=== PATIENT | female | born 1960 | race African-American/Black ===

== ENCOUNTER 2017-01-23 20:35 | Inpatient (IN) ==
--- NOTE | 2017-01-23 15:36 | PROVIDER DOCUMENTATION ---
HPI-General Adult - General Chief Complaint: Clotted Vas Access Stated Complaint: SENT FROM DIALYSIS FOR EVAL Time Seen by Provider: 01/23/17 15:22 Source: patient Allergies/Adverse Reactions: Patient Allergies Allergy/AdvReac Type Severity Reaction Status Date / Time No Known Allergies Allergy Verified 12/01/16 16:15 Home Medications: Home Medication List Medication Instructions Recorded Confirmed Last Taken Type Sodium Bicarbonate 650 mg PO BID #60 tablet 07/07/15 01/23/17 01/22/17 20:00 Rx Atorvastatin Calcium [Lipitor] 40 mg PO QHS 08/16/15 01/23/17 01/22/17 20:00 History Amlodipine [Norvasc] 10 mg PO DAILY #30 tablet 04/07/16 01/23/17 01/23/17 Rx Isosorbide Mononitrate [Isosorbide 30 mg PO DAILY #30 tab.er.24h 04/07/1601/23/17 07:00 Rx Mononitrate ER] Metoprolol Succinate E.r. [Toprol 25 mg PO DAILY #30 tablet 04/07/16 01/23/17 08:00 Rx Xl] Sertraline [Zoloft] 50 mg PO DAILY #30 tablet 04/07/16 01/23/17 01/23/17 07:00 Rx Docusate Sodium 100 mg PO DAILY 06/19/16 01/23/17 06/23/16 07:30 History Hydralazine [Apresoline] 50 mg PO TID 06/19/16 01/23/17 01/23/17 History Trazodone [Desyrel] 50 mg PO QHS 06/19/16 01/23/17 01/22/17 20:00 History Gabapentin [Neurontin] 300 mg PO TID 12/02/16 01/23/17 01/23/17 History Tramadol [Ultram] 50 mg PO BID PRN 12/02/16 01/23/17 01/22/17 20:00 History Insulin Detemir [Levemir Flextouch] 28 unit SQ QHS 01/23/17 01/23/17 01/22/17 20 :00 History - History of Present Illness -Gen Adult Nature of Presenting Problems: 57 year old AAF presents from dialysis. pt reports she rodo to dialysis and they were unable to access her fistula for dialysis and sent her to the ED for evaluation. pt denies any complaints at this time. full dialysis was performed on Thursday. Location of Pain/Injury: reports: upper extremity Review of Systems - Adult - REVIEW OF SYSTEMS - ADULT Constitutional: reports: no symptoms reported. denies: chills, fever, fatique Eyes: reports: no symptoms reported. denies: discharge, blurred vision, double vision, redness Ears, Nose, Mouth & Throat: reports: no symptoms reported. denies: ear discharge, ear pain, nose pain, loose teeth, throat pain, throat swelling Cardiovascular: reports: no symptoms reported. denies: chest pain, palpitations , syncope Respiratory: reports: no symptoms reported. denies: chronic cough, cough, shortness of breath, wheezing Gastrointestinal: reports: no symptoms reported. denies: abdominal pain, diarrhea, nausea, vomiting Genitourinary: reports: no symptoms reported. denies: dysuria, hematuria, urgency Musculoskeletal: reports: see HPI, other (left AV fistula). denies: bone pain, joint pain, joint swelling, neck pain Integumentary: reports: no symptoms reported. denies: hives, itching, skin sores/ulcer Neurological: reports: no symptoms reported. denies: ataxia, syncope Psychiatric: reports: no symptoms reported Endocrine: reports: no symptoms reported Hematologic/Lymphatic: reports: no symptoms reported Allergic/Immunologic: reports: no symptoms reported All Other Systems: Reviewed and Negative Past History - Adult - PAST MEDICAL HISTORY-ADULT Review of Records: reports: Old Records Reviewed, Nursing Assessment Review, Medications Reviewed, Social history reviewed & non-contributory. Major Childhood Illnesses: reports: denies history Cardiovascular: reports: arrhythmia, CAD, HTN, ID, PVD Respiratory: reports: denies history Gastrointestinal: reports: denies history Obstetrical/Gynecological: reports: denies history Genitourinary: reports: dialysis, kidney disease Musculoskeletal: reports: denies history Neurological: reports: CVA Psychiatric: reports: denies history Endocrine/Immune: reports: Diabetes Diabetes controlled by:: Insulin Dependent Other Conditions: reports: denies history - PRIOR SURGERIES/PROCEDURES Surgical/Procedure History: reports: , orthopedic (extremity) (left BKA ), other (dental) - PRIOR HOSPITALIZATIONS Prior Hospitalizations: reports: none - IMMUNIZATION STATUS Childhood Immunizations: See Nurse Assessment Flu Vaccine: See Nurse Assessment - FAMILY HISTORY Family History: reviewed, not pertinent - SOCIAL HISTORY Smoking: cigarettes Provider spent 3-5 mins advising pt. on dangers of tobacco.: Discussed manners to quit use, and f/u contacts for add'l counseling. Substance Use: none/never Alcohol Use Frequency: never Physical Exam-General - PHYSICAL EXAM-ADULT Initial Vital Signs Reviewed: Yes - CONSTITUTIONAL General Appearance: appears well, alert, no apparent distress. negative: mild distress, moderate distress, severe distress - EYES Eyes: pink conjunctivae. negative: conjuctival exudate, pale conjunctivae, sclera injected, scleral icterus, subconjunctival hemorrhage - HEAD, EARS, NOSE, MOUTH & THROAT HENMT: normocephalic/atraumatic, moist mucous membranes, normal ENT inspection - NECK Neck: non-tender, full range of motion, supple, normal inspection. negative: C- spine tenderness, limited range of motion, tender lateral, tender midline - RESPIRATORY Respiratory: chest non-tender, lungs clear, normal breath sounds, no pleuratic chest pain, no respiratory distress, no accessory muscle use. negative: respiratory distress, decreased breath sounds, accessory muscle use, crackles, rales, rhonchi, stridor, wheezing - CARDIOVASCULAR Cardiovascular: normal peripheral pulses, regular rate, rhythm, no edema, no gallop, no JVD, no murmur - GASTROINTESTINAL (ABDOMEN) Abdominal Exam: normal bowel sounds, non tender, soft, no organomegaly, no pulsatile mass. negative: distended, guarding, rigid, tenderness - LYMPHATIC Lymphatic: no adenopathy - MUSCULOSKELETAL Back Exam: normal inspection, no CVA tenderness, no vertebral tenderness. negative: CVA tenderness, decreased range of motion, swelling, vertebral tenderness Extremity: normal range of motion, non-tender, other (left upper arm with AV fistula). negative: normal gait (wheelchair bound), normal inspection ( bilateral above the knee amputations) Peripheral Pulses: radial (R): 3+, radial (L): 3+ - SKIN Integumentary: normal color, normal turgor, warm/dry. negative: pallor, petechiae, purpura, rash - NEUROLOGIC Neurologic: grossly normal, no motor/sensory deficits - PSYCHIATRIC Psych/Mental Status: normal mood/affect, normal thought content, normal thought process, oriented x 3 Progress - PLAN OF CARE/RESULTS Progress/Plan/Lab Results: Vital Signs - 8 hr 01/23/17 14:26 Temperature 97.8 F Pulse Rate 67 Respiratory Rate 14 Blood Pressure 159/57 O2 Sat by Pulse Oximetry [address] Morales, need for consult with nephrology. - CONSULTS/PCP/HOSPITALIST Notification #1 *Consult/PCP/Hospitalist*: Dr. Perry Time Discussed: 15:35 Consult Disposition: other (pt was suppossed to go to admissions, not the ED.) Departure - Departure Time of Disposition Decision: 15:40 DIAGNOSIS: Vascular abnormality, Renal failure Disposition: OTHER 70 Certified Medical Emergency: Emergent Condition: Stable Additional Freetext Instructions: Please go to admissions right now, you were supposed to go there, not to the ED. ED Follow Up Instructions: You have been treated by a care provider in the Emergency Department. These instructions are being provided to you so you can have an understanding of how to care for yourself upon discharge. Upon discharge from the Emergency Department, you are responsible for making arrangements for follow-up care by a physician of your choice. Take all prescribed medications as directed. Return to the Emergency Department immediately for any new or worsening symptoms. You may call the Physician Referral phone number at [phone] to obtain a list of Physicians who are taking new patients. Referrals and Follow-Ups: None,PCP [Primary Care Provider] - Reggie Perry MD [STAFF PHYSICIAN] - Attestation - Physician/ [place] Attestation Patient care was provided by Advanced Practice Provider:: Yes Advanced Practice Provider:: Ruba Basurto Advanced Practice Provider documentation review:: The Mid-level provider documentation, treatment plan and medical decision making was reviewed by the physician who agrees with all treatment and medical decision making by the [facility].
--- NOTE | 2017-01-23 18:25 | CONSULTATION ---
DATE OF CONSULTATION: 01/23/2017 HISTORY OF PRESENT ILLNESS: This is a 57-year-old female with end-stage renal disease on dialysis for a long period of time. She has left upper arm AV graft created by Dr. Lujan in June. It has functioned well until dialysis today and noted to be thrombosed. She is admitted now for temporary access and plans for declot. No pain. Otherwise in her usual state of health. No obvious signs of volume overload. REVIEW OF SYSTEMS: Ten point negative except for what is mentioned in her HPI. PAST MEDICAL HISTORY: 1. End-stage renal disease. 2. Heart failure. 3. Diabetes. 4. Coronary disease. 5. Hypertension. 6. Medical noncompliance. 7. Peripheral vascular disease. 8. Neuropathy. 9. Dyslipidemia. 10. CVA x2. SURGICAL HISTORY: Left arm upper arm AV graft, bilateral above knee amputations. SOCIAL HISTORY: Every day smoker. Denies alcohol or drugs. She is disabled. She lives in a rehab facility. FAMILY HISTORY: Diabetes, heart disease, hypertension. PHYSICAL EXAMINATION: Vital Signs: Temperature is 98.6 degrees, pulse 70, blood pressure 155/62, oxygen saturation 100% on room air. General: She is alert, in no acute distress. HEENT: No scleral icterus. There are no cervical scars. Cardiovascular: Normal rate, regular rhythm. Pulmonary: No increased work of breathing. Abdomen: Soft, nontender, nondistended. Bilateral below-knee amputations, a left upper arm AV graft. No pulse or thrill. Her left wrist and hand are warm. There is a palpable radial pulse. LABS: Pending. ASSESSMENT: This is a 57-year-old lady with end-stage renal disease and a thrombosed left upper arm AV graft. Risks, benefits and alternatives discussed including arterial injury, bleeding and infection. She consents to temporary Vas-Cath placement. We will do this evening and plan to place this in her groin. I have discussed with Dr. Lujan. He will plan to declot her graft on Thursday. Dr. Perry plans dialysis tomorrow. cc: MD Reggie Valenzuela MD MTDD
[~2017-01-23 20:35] MED LIST: ULTRAM PO PRN
--- NOTE | 2017-01-23 20:38 | OPERATIVE NOTE ---
PROCEDURE DATE: 01/23/2017 PREOPERATIVE DIAGNOSES: 1. Left arteriovenous graft thrombosis. 2. End-stage renal disease. POSTOPERATIVE DIAGNOSES: 1. Left arteriovenous graft thrombosis. 2. End-stage renal disease. PROCEDURE PERFORMED: Ultrasound-guided right femoral vein dialysis catheter placement. COMPLICATIONS: None. ESTIMATED BLOOD LOSS: 5 mL. SPECIMENS: None. ANESTHESIA: Local. OPERATIVE INDICATIONS: A 57-year-old female with end-stage renal disease and a left upper arm AV graft that was not functional today at dialysis. It was felt to be clotted. Temporary access is indicated to facilitate dialysis pending formal thrombectomy. OPERATIVE FINDINGS: Ultrasound of the right groin showed normal arterial anatomy. There was a large femoral vein that was compressible with no evidence intraluminal thrombus. OPERATIVE NOTE: The risks, benefits, and alternatives were discussed. The patient consented to the procedure. She was seen in the procedural area, and the procedure to be performed was confirmed. The surgical site was confirmed. A time out was performed between nursing and surgical team. The right groin was prepped with chlorhexidine solution and draped in the usual fashion. Ultrasound examination was performed of the right groin with the above findings, adequate vein for placement of the line. Local anesthetic was infiltrated at the level of the vein. Under direct ultrasound guidance, a pink introducer needle was used to access the right femoral vein. Dark nonpulsatile venous blood was noted on return. The wire passed easily into the vena cava, and we confirmed with ultrasound that this coursed directly into the femoral vein, not traversing the artery. I made a skin conchita with an 11 blade scalpel, dilated the tract serially using Seldinger technique, and a preflushed triple-lumen dialysis catheter was advanced without resistance. All ports withdrew blood and flushed easily. It was secured with nylon suture, and a sterile dressing was applied. Sterile caps were also applied to the line. She tolerated the procedure very well. There were no identifying complications. She was transferred back to her room in good condition. cc: MD Reggie Valenzuela MD
[2017-01-23] MEDS: LIPITOR PO SCH (23:05)
[2017-01-23] MEDS: SODIUM BICARBONATE PO SCH (23:05)
[2017-01-23] MEDS: LEVEMIR INJ SCH (23:06)
[2017-01-23] MEDS: DESYREL PO SCH (23:06)
[2017-01-23] MEDS: LOMOTIL PO PRN (23:06)
[2017-01-24] MEDS ORDERED: TIGHT: 0.2 ML/HR MISC PRN (08:31)
[2017-01-24] MEDS ORDERED: HEPARIN IV PRN (08:31)
[2017-01-24] MEDS ORDERED: NS 2,000 ML MISC PRN (08:31)
[2017-01-24] MEDS ORDERED: NS 2,000 ML ONE (09:46)
[2017-01-24] MEDS ORDERED: HEPARIN ONE (09:46)
--- NOTE | 2017-01-24 12:57 | PROGRESS NOTE ---
DATE: 01/24/2017 This is a dialysis note. She is midway through her treatment today. No shortness of breath. No cramping. No nausea and no hypotension. No adjustments are made. We will target 2-3 L of ultrafiltration. Two potassium bath. cc: Reggie Perry MD
--- NOTE | 2017-01-24 15:17 | CONSULTATION ---
DATE OF CONSULTATION: 01/24/2017 CONSULTING PHYSICIAN: Dr. Reggie Perry. REASON FOR CONSULTATION: Medical management. HISTORY OF PRESENT ILLNESS: Ms. Martinez is a 57-year-old female well known to our service. She has a history of ESRD on hemodialysis, along with multiple other comorbidities. She was admitted by Dr. Perry for AV fistula clot, ultimately requiring a hemodialysis catheter placed by Dr. Garrido yesterday evening. Currently, she is in hemodialysis, resting comfortably. She has been complaining of right-sided chest pain for the past 4 days. She rates it as sharp in nature and intermittent, and there are no radiating qualities, no shortness of breath, no diaphoresis. She denies any cough or congestion. No recent fevers or chills. No abdominal pain, nausea, or vomiting. We have ordered stat laboratories and diagnostics. PAST MEDICAL HISTORY: 1. Chronic diastolic congestive heart failure. 2. History of cerebrovascular disease. 3. ESRD, on hemodialysis Thursday, Thursday, Thursday. 4. CAD. 5. Hypertension. 6. Medical noncompliance. 7. Hyperlipidemia. 8. Diabetic neuropathy. 9. CVA. 10. Nicotine dependence. 11. Poorly controlled insulin-dependent diabetes mellitus. SURGICAL HISTORY: Bilateral AKAs and left AV graft. She had a hemodialysis catheter placed yesterday. SOCIAL HISTORY: Patient smokes about 4-6 cigarettes a day. She denies alcohol or drug use. She is disabled. FAMILY HISTORY: Significant for hypertension, heart disease, and diabetes. REVIEW OF SYSTEMS: Fourteen-point review of systems obtained and found to be negative with the exception of the HPI. ALLERGIES: No known drug allergies. HOME MEDICATIONS: Norvasc 10 mg daily; Lipitor 40 mg at bedtime; Colace 100 mg daily; Neurontin 300 mg p.o. t.i.d.; Apresoline 50 mg t.i.d.; Levemir FlexTouch 28 units subcutaneously at bedtime; isosorbide mononitrate ER 30 mg daily; metoprolol-XL 25 mg daily; Zoloft 50 mg daily; sodium bicarbonate 650 mg p.o. b.i.d.; Ultram 50 mg b.i.d.; Desyrel 50 mg at bedtime. PHYSICAL EXAMINATION: Vital Signs: Blood pressure is 182/59, heart rate 70, respiratory rate 16, O2 saturation 98% on room air. Temperature is 97.9 degrees. General: This is a chronically ill- appearing, 57-year-old female, lying on the hospital bed in no acute distress. Neurologic: The patient is awake and alert. She is nonfocal. She follows commands. HEENT: Head is atraumatic, normocephalic. Pupils equal, round, reactive to light. Oral mucosa moist. Trachea midline. Chest: Clear to auscultation bilaterally. Cardiovascular: Regular rate and rhythm. S1 and S2 noted. Gastrointestinal: Soft, nondistended, nontender. Bowel sounds positive. Extremities: Bilateral AKAs noted. Femoral pulses intact. Hemodialysis catheter intact. DIAGNOSTIC DATA: Pending. ASSESSMENT AND PLAN: 1. Chest pain: Very atypical in nature, but, given her history, we will work her up for cardiac causes including ischemic heart disease. We are going to check a chest x-ray and trend her cardiac enzymes. She is on what appears to be very adequate medications for her chronic coronary disease. We will make sure she is on an aspirin as well. 2. End-stage renal disease, on hemodialysis: This is going to be managed per Dr. Perry. We have ordered laboratories. 3. Diabetes mellitus: Chronic and stable. Will continue her home medications and add pattern sugars and sliding scale insulin. 4. Hypertension: Chronic and stable, continue home medications. 5. Diastolic heart failure: Chronic and stable, continue home medications. 6. Nicotine dependence: Patient has been highly advised to quit smoking. We will write a nicotine patch and continue daily cessation education. 7. Hyperlipidemia: Chronic and stable, continue home medications. 8. Medical noncompliance: Patient has been advised to continue medication regimen as outlined by her primary care physician and Dr. Perry. We will continue daily education. 9. Deep vein thrombosis prophylaxis will be provided with daily heparin. Further recommendations to follow. We would like to thank you for this consultation. We will continue to follow along with you. Dictated by CORINA Muñoz for Miguelangel San MD cc: CORINA Muñoz MD Reginald D. Gladish, MD
--- NOTE | 2017-01-24 15:18 | HISTORY AND PHYSICAL ---
DATE OF ADMISSION: 01/24/2017 REASON FOR ADMISSION: Assistance with management. HISTORY OF PRESENT ILLNESS: Ms. Martinez is a 57-year-old woman, with severe diabetes and peripheral vascular disease, and end-stage kidney disease. She receives dialysis routinely Thursday, Thursday and Thursday at our local clinic. She presented to dialysis on the with a thrombosed left upper arm AV graft. Because of the lateness of the hour on Thursday we were not able to arrange for her to get an outpatient thrombectomy performed. Transport to [place] was also a problem. As such, she was directed to the hospital for access placement. Dr. Garrido and Dr. hernandes have consulted together and they have plan to place a femoral vein catheter on the evening of the , and then Dr. Hernandes will perform thrombectomy on Thursday the . Currently she has no chest pain or palpitation or shortness of breath. No nausea or vomiting. She does describe loose bowel movements that has been going on for about a week. No chills, fevers or sweats. No pain in the arm. She was not aware that her graft had thrombosed. PAST MEDICAL HISTORY: 1. Diabetes. 2. Peripheral vascular disease. 3. Hyperlipidemia. 4. Hypertension. 5. Peripheral neuropathy. HOME MEDICATIONS: The home medications include sodium bicarbonate, atorvastatin, metoprolol, isosorbide, sertraline, amlodipine, trazodone, docusate, hydralazine, tramadol, gabapentin, and insulin. ALLERGIES: None. SOCIAL HISTORY: She lives in [place], but has very limited social support. They have no car to drive to [place]. FAMILY HISTORY: Positive for diabetes and hypertension. REVIEW OF SYSTEMS: Otherwise negative. PHYSICAL EXAMINATION: Vital Signs: Blood pressure 182/59, heart rate 70, respirations 16, afebrile. General: She is a chronically ill woman, in no acute distress. She has had obvious weight gain in that her facial muscles have filled out and her arms and shoulders have filled out. HEENT: Pupils are equal. Conjunctivae are pink. Oropharynx is moist. Dentition is normal. Neck: Supple. Trachea is midline. No jugular venous distention. Heart: Regular, without gallops or murmurs. Lungs: The lungs have equal breath sounds. No crackles. Abdomen: Soft and nontender. Bowel sounds are present. Extremities: The extremities have trace edema. No clubbing or cyanosis. She has no ulcers. LABORATORY DATA: None. IMPRESSION: 1. Thrombosed AV graft. Plan as above. We will hold her in the hospital over the weekend because of difficulty with transportation. 2. End-stage kidney disease. She is undergoing dialysis today. In fact, she is currently receiving treatment. 3. Hypertension. Continue home medications. Her blood pressure is ranging between 148 and 182 systolic. We will assess post dialysis before making the adjustment. 4. History of metabolic acidosis. She is still receiving p.o. bicarbonate. We will recheck her labs. 5. History of anemia. We will recheck. She may require dose of erythropoietin. cc: Reggie Perry MD
[2017-01-24] MEDS: APRESOLINE PO SCH ×3 (15:42→22:05)
[2017-01-24] MEDS: COLACE PO SCH (15:43)
[2017-01-24] MEDS: ZOLOFT PO SCH (15:44)
[2017-01-24] MEDS: NORVASC PO SCH (15:44)
[2017-01-24] MEDS: NEURONTIN PO SCH ×3 (15:45→22:03)
[2017-01-24] MEDS: TOPROL XL PO SCH (15:45)
[2017-01-24] MEDS: IMDUR PO SCH (15:46)
[2017-01-24] MEDS: SODIUM BICARBONATE PO SCH ×2 (15:46→22:03)
--- NOTE | 2017-01-24 15:52 | Diag Imaging Result Document ---
PROCEDURE NAME: CHEST-PORTABLE - 01/24/2017 PORTABLE CHEST X-RAY: COMPARISON: 12/02/2016. FINDINGS: The lungs are normally expanded and clear. Heart size and mediastinal contours are normal. No pneumothorax or pleural effusion. IMPRESSION: Negative exam.
[2017-01-24] MEDS: NICODERM PATCH TD SCH (15:53)
[2017-01-24] MEDS: ASPIRIN PO SCH (15:53)
[2017-01-24] MEDS: HUMALOG SUBQ SCH ×2 (16:09→22:04)
[2017-01-24] MEDS: LOMOTIL PO PRN ×2 (16:20→22:04)
[2017-01-24] MEDS ORDERED: INSULIN PEN NEEDLES ONE (17:19)
[2017-01-24 21:49] LABS: HEMATOCRIT 37.8 % (37.0-47.0); HEMOGLOBIN 12.5 g/dL (12.0-16.0); MCH 33.3 PG (27-31); MCHC 33.1 g/dL (33-37); MCV 100.8 FL (81-99); MPV 12.6 FL (7.4-10.4); RBC 3.75 XMIL (4.2-5.4)
[2017-01-24] MEDS: LIPITOR PO SCH (22:03)
[2017-01-24] MEDS: HEPARIN SUBQ SCH (22:03)
[2017-01-24] MEDS: DESYREL PO SCH (22:03)
[2017-01-24] MEDS: LEVEMIR INJ SCH (22:04)
[2017-01-24 22:27] LABS: ALBUMIN 4.2 g/dL (3.5-5.0); CALCIUM 9.6 mg/dL (8.8-10.2); TOTAL BILIRUBIN 0.25 mg/dL (0.20-1.00); TOTAL PROTEIN 7.8 g/dL (6.3-8.3)
[2017-01-24 22:41] LABS: CK INDEX 1.1 (0.0-2.5); CK-MB 2.55 ng/mL (0.0-5.0)
[2017-01-25 06:44] LABS: HEMATOCRIT 37.1 % (37.0-47.0); MCH 33.4 PG (27-31); MCHC 32.3 g/dL (33-37); MCV 103.3 FL (81-99); MPV 13.1 FL (7.4-10.4); RBC 3.59 XMIL (4.2-5.4)
[2017-01-25 07:09] LABS: ALBUMIN 3.9 g/dL (3.5-5.0); CALCIUM 9.4 mg/dL (8.8-10.2); POTASSIUM 4.2 mmol/L (3.5-5.1)
[2017-01-25] MEDS: HUMALOG SUBQ SCH ×4 (07:21→21:57)
[2017-01-25 07:44] LABS: CK INDEX 0.7 (0.0-2.5); CK-MB 2.2 ng/mL (0.0-5.0)
[2017-01-25 07:54] LABS: INR 1.08; PROTIME 11.4 Seconds (9.2-11.7); PTT 24.7 Seconds (22.0-36.0)
[2017-01-25] MEDS: ZOLOFT PO SCH (08:55)
[2017-01-25] MEDS: IMDUR PO SCH (08:55)
[2017-01-25] MEDS: SODIUM BICARBONATE PO SCH ×2 (08:55→21:08)
[2017-01-25] MEDS: NEURONTIN PO SCH ×3 (08:55→17:28)
[2017-01-25] MEDS: TOPROL XL PO SCH (08:56)
[2017-01-25] MEDS: HEPARIN SUBQ SCH ×2 (08:56→21:09)
[2017-01-25] MEDS: APRESOLINE PO SCH ×3 (08:56→17:28)
[2017-01-25] MEDS: NORVASC PO SCH (08:57)
[2017-01-25] MEDS: COLACE PO SCH (08:57)
[2017-01-25] MEDS: ASPIRIN PO SCH (08:57)
[2017-01-25] MEDS: NICODERM PATCH TD SCH (08:57)
[2017-01-25] MEDS: LOMOTIL PO PRN ×3 (09:58→21:08)
--- NOTE | 2017-01-25 15:41 | PROGRESS NOTE ---
DATE: 01/25/2017 SUBJECTIVE: No issues. Dialysis went well. Her vas cath functioned well. No symptoms of her left upper extremity. No pain. OBJECTIVE: Vital signs: No fevers. No tachycardia. Blood pressure normal. Left upper extremity: Well perfused. Her IV site is without hematoma. LABORATORY: I reviewed her labs. Electrolytes look okay. Creatinine stable at 3.6. ASSESSMENT AND PLAN: This is a 57-year-old female with end-stage renal disease and nonfunctional left upper arm graft with temporary access in her groin. Discussed with Dr. Lujan. He plans to thrombectomize the graft Thursday. We will make her nothing per oral at midnight in anticipation of this. I have discussed with Dr. Perry as well. cc: MD Reggie Valenzuela MD
--- NOTE | 2017-01-25 18:07 | PROGRESS NOTE ---
DATE: 01/25/2017 SUBJECTIVE: This patient states that she is feeling fine. She is not complaining of any issues at this moment. No acute events overnight. OBJECTIVE: Vital Signs: Temperature 98.4 degrees, pulse 70, respiratory rate 16, blood pressure 154/66, oxygen saturation 100% on room air. HEENT: Head normocephalic. No trauma. PERRLA. Neck: Supple. No JVD. No masses. Central trachea. Chest: Clear to auscultation. No wheezing. No rales. Abdomen: Soft, nontender, nondistended. No hepatosplenomegaly. Cardiovascular: RRR. No murmurs. Extremities: She has bilateral lower extremity amputation. Neurological: The patient is alert and oriented x3. She moves all 4 extremities. LABORATORY: WBC 4.2, hemoglobin 12, hematocrit 37.1, platelets 98,000. Sodium 143, potassium 4.2, chloride 102, bicarbonate 23, BUN 73, creatinine 3.6, glucose 116, calcium 9.4, glucose 119. Troponin 0.03 x2. ASSESSMENT AND PLAN: 1. End-stage renal disease on hemodialysis. This patient has a nonfunctional left upper arm graft with poor IV access in her groin. The plan is to thrombectomized the graft tomorrow. This patient will be NPO after midnight. The aspirin has been held. We will continue to monitor. 2. Chest pain. This patient is not complaining about chest pain at this moment. 3. Type 2 diabetes. This is chronic and stable. Continue with sliding scale and pattern of blood sugar. 4. Hypertension, chronic and stable. Continue with home medication. 5. Diastolic heart failure. Continue with the same management. 6. Nicotine dependence. This patient has been highly advised against smoking cigarettes. We will continue with nicotine patch and daily cessation education. 7. Hyperlipidemia. Continue home medication. 8. Medical noncompliance. This patient has been advised to continue medication regimen as prescribed. We will continue with daily education. 9. Deep vein thrombosis prophylaxis will be provided by daily heparin and will be held in the morning for the procedure. cc: MD Reggie Lazo MD
[2017-01-25] MEDS: LIPITOR PO SCH (21:08)
[2017-01-25] MEDS: LEVEMIR INJ SCH (21:08)
[2017-01-25] MEDS: DESYREL PO SCH (21:08)
--- NOTE | 2017-01-26 05:54 | EKG Report ---
Test Performed on : 01/24/2017 3:04:47 PM Test Reason : CP Blood Pressure : / mmHG Vent. Rate : 071 BPM Atrial Rate : 071 BPM P-R Int : 140 ms QRS Dur : 084 ms QT Int : 434 ms P-R-T Axes : 063 018 187 degrees QTc Int : 471 ms Sinus rhythm. with occasional premature ventricular complexes. Biatrial enlargement ST \T\ T wave abnormality, consider inferolateral ischemia Prolonged QT Abnormal ECG When compared with ECG of 02-DEC-2016 16:54, premature ventricular complexes. are now present Criteria for Inferior infarct are no longer present T wave inversion more evident in Inferior leads Confirmed by Marco Antonio ELLER, Jerel Morales ([id number]) on 01/26/2017 7:51:21 PM
[2017-01-26 06:13] LABS: MANUAL DIFF NEEDED? NO
[2017-01-26] MEDS: HUMALOG SUBQ SCH ×4 (06:25→21:22)
[2017-01-26 06:29] LABS: CALCIUM 9.4 mg/dL (8.8-10.2); POTASSIUM 4.5 mmol/L (3.5-5.1)
[2017-01-26 06:42] LABS: EOS# 0.07 X1000 (0.0-0.7); EOS% 1.8 % (0.0-10.0); HEMATOCRIT 37.6 % (37.0-47.0); HEMOGLOBIN 12.5 g/dL (12.0-16.0); LYMPH# 1.58 X1000 (1.2-3.4); LYMPH% 40.5 % (20.5-51.1); MCH 33.8 PG (27-31); MCHC 33.2 g/dL (33-37); MCV 101.6 FL (81-99); MONO# 0.43 X1000 (0.11-0.59); MPV 12.9 FL (7.4-10.4); NEUT% 45.7 % (42.2-75.2); PLT 121 X1000 (130-400)
[2017-01-26] MEDS ORDERED: HEPARIN ONE ×5 (08:00→15:57)
[2017-01-26] MEDS ORDERED: NS 2,000 ML ONE ×3 (08:00→13:54)
[2017-01-26] MEDS ORDERED: KEFZOL 1 GM/D5W 1 GM/50 ML IVPB IV ONE (08:31)
[2017-01-26] MEDS ORDERED: TIGHT: 0.2 ML/HR MISC PRN (08:42)
[2017-01-26] MEDS ORDERED: HEPARIN IV PRN (08:42)
[2017-01-26] MEDS ORDERED: NS 2,000 ML MISC PRN (08:42)
--- NOTE | 2017-01-26 11:05 | PROGRESS NOTE ---
DATE: 01/26/2017 SUBJECTIVE: Patient is sitting up in bed, undergoing hemodialysis. She is to go to surgery later this afternoon for a thrombectomy. OBJECTIVE: Vital Signs: Temperature 97.5 degrees, pulse 61, respiratory rate 20, blood pressure 121/97. Intake and output have not been measured. General: This is a middle- aged female, resting in bed. She is awake, alert, no acute distress. HEENT: Normocephalic , atraumatic. Oral mucosa is moist. Neck: Supple. Trachea midline. Cardiovascular: Regular rate and rhythm. No murmur or gallop is appreciated. Pulmonary: She has equal excursion. She is clear bilaterally with no increased work of breathing. She is on room air. Abdomen: Soft, with positive bowel sounds. : Not inspected. She has minimal void with hemodialysis assist. Extremities: She has perhaps trace pretibial edema. No clubbing or cyanosis. Her dialysis graft is currently cannulated. Integumentary: Skin is warm and dry without rash or lesion. LAB DATA: WBC of 3.9, hemoglobin 12.5, platelets 121,000. Sodium 138, potassium 4.5, CO2 22, BUN 93, creatinine 4.2, calcium 9.4, albumin 3.9, and phosphorus 5.8. ASSESSMENT AND PLAN: 1. Thrombosed arteriovenous graft. We are trying to dialyze this morning prior to her surgery. We are having some issues with flow. We will continue as able. If need be we will plan to dialyze again tomorrow. 2. Electrolytes, acid-base balance, anemia. These are all in target. 3. Hypertension. She has some better controlled today. 4. Fluid volume. She is not overloaded. Seen, data reviewed, discussed with Eliseo Ferrer on 01/26/17. I agree with the above assessment and plan of care. rg Dictated by CORINA Chong for Reggie Perry MD cc: Reggie Perry MD [facility]
[2017-01-26] MEDS: APRESOLINE PO SCH ×2 (13:10→17:45)
[2017-01-26] MEDS: ZOLOFT PO SCH (13:10)
[2017-01-26] MEDS: TOPROL XL PO SCH (13:11)
[2017-01-26] MEDS: SODIUM BICARBONATE PO SCH ×2 (13:12→21:21)
[2017-01-26] MEDS: NORVASC PO SCH (13:16)
[2017-01-26] MEDS: NEURONTIN PO SCH ×2 (13:17→17:45)
[2017-01-26] MEDS: NICODERM PATCH TD SCH (13:17)
[2017-01-26] MEDS: IMDUR PO SCH (13:18)
[2017-01-26] MEDS: HEPARIN SUBQ SCH ×2 (13:20→21:21)
[2017-01-26] MEDS: COLACE PO SCH (13:21)
[2017-01-26] MEDS ORDERED: NS 1,000 ML ONE (13:57)
[2017-01-26] MEDS ORDERED: FENTANYL ONE (15:51)
[2017-01-26] MEDS ORDERED: DIPRIVAN 1% ONE (15:51)
[2017-01-26] MEDS ORDERED: ZOFRAN ONE (15:57)
[2017-01-26] MEDS ORDERED: DECADRON ONE (15:58)
[2017-01-26] MEDS ORDERED: EPHEDRINE ONE (15:58)
--- NOTE | 2017-01-26 17:58 | PROGRESS NOTE ---
DATE: 01/26/2017 SUBJECTIVE: This patient states that she is feeling fine. She is not complaining of any seizures at this moment. No acute events overnight. She just came back from surgery and previous to that she went for dialysis. OBJECTIVE: Vital Signs: Temperature 97.5 degrees, pulse 87, respiratory rate 18, blood pressure 155/63. O2 saturation 100% on room air. HEENT: Head normocephalic. No trauma. PERRLA. Neck: Supple. No JVD. No masses. Central trachea. Chest: Clear to auscultation. No wheezing. No rales. Abdomen: Soft, nontender, nondistended. No hepatosplenomegaly. Cardiovascular: RRR. No murmurs. Extremities: She has bilateral lower extremity amputation and she has a left upper arm fistula. Neurologic: The patient is alert and oriented x3. She moves all 4 extremities. LABORATORY: WBC 3.9, hemoglobin 12.5, hematocrit 37.6, platelet 121,000. Sodium 138, potassium 4.5, chloride 97, bicarbonate 22, BUN 93, creatinine 4.2, glucose 153, calcium 9.4. ASSESSMENT AND PLAN: 1. End-stage renal disease on hemodialysis. Last hemodialysis today. This patient has a nonfunctional left upper arm graft with poor IV access in the groin. Today this patient went for surgery, probably this patient's arm was thrombectomized, the graft, and this patient now is on a diet. I will restart aspirin and heparin tomorrow morning. 2. Chest pain. This patient is not complaining about chest pain at this moment. 3. Type 2 diabetes. This is chronic and stable. Continue with sliding scale and pattern of blood sugar. 4. Hypertension chronic and stable. Continue with home medications. 5. Diastolic heart failure. Continue with the same management. 6. Nicotine dependence. This patient had has been highly advised against smoking cigarettes. We will continue with the nicotine patch and daily cessation education. 7. Hyperlipidemia. Continue with home medication. 8. Medical noncompliance. This patient has been advised to continue medication regimen as prescribed. We will continue with daily education. 9. Deep venous thrombosis prophylaxis. I will restart daily heparin that was held for the morning procedure. cc: MD Reggie Lazo MD
--- NOTE | 2017-01-26 19:13 | OPERATIVE NOTE ---
PROCEDURE DATE: 01/26/2017 PROCEDURE: Percutaneous thrombectomy left upper arm arteriovenous graft with an AngioJet, percutaneous balloon angioplasty of the venous anastomosis and the arterial anastomosis with completion graftogram. SURGEON: Brady Lujan MD. PAYROLL SECRETARY: Lulu Hendricks RN. PREOPERATIVE DIAGNOSIS: Thrombosis left upper arm arteriovenous graft. POSTOPERATIVE DIAGNOSIS: Thrombosis left upper arm arteriovenous graft. FINDINGS: There was a stenosis at the venous end and the arterial end. DESCRIPTION OF PROCEDURE: Satisfactory general anesthesia was achieved and LMA was used. The left arm was prepped and draped in a sterile fashion. We made a small stab incision, and accessed the graft orienting the sheath toward the axilla. After entering the graft, we shot a Graftogram showing clot, but we were able to pass a Glidewire across the anastomosis into the [place] vein. We had to use a 5-Japanese straight catheter to get across the venous anastomosis. We then passed the AngioJet thrombectomy catheter across the venous anastomosis and engaged it and pulled it back, removing clot as we went. We pulled all the way back into the sheath. We did that a couple of times. We then shot a completion Graftogram showing a stenosis at the venous end. We obtained a 4 x 7 mm balloon and passed it across the anastomosis and inflated it there for 45 seconds. We then shot a completion Graftogram showing resolution of the venous stenosis. We then actually removed that sheath in order to avoid going out the sheath from the other direction. Placed two 3- 0 Polysorb simple stitches to prevent bleeding. We then accessed the graft, orienting the sheath toward the elbow from the axilla. After entering it, we passed the Glidewire across the arterial anastomosis. Once again, we passed the AngioJet across the arterial anastomosis and evacuated clot. We actually got some flow out through the previous puncture site. We then shot a Graftogram again and arterial stenosis was identified. We passed a 4 x 4 balloon across it and inflated it for 20 seconds. We then removed it, shot a completion Graftogram and there was resolution of the stenosis at the arterial end, and there was flow that evacuated through the graft. We were satisfied with our result. Palpable flow was present. We removed the sheath in the proximal arm and placed a 3-0 Polysorb [id number] stitch there as well. Band-Aids were then applied. She tolerated it well, was sent to the recovery room in satisfactory condition. cc: MD Reggie Meredith MD MTDD
[2017-01-26] MEDS: LIPITOR PO SCH (21:21)
[2017-01-26] MEDS: LEVEMIR INJ SCH (21:22)
[2017-01-26] MEDS: PERIDEX MT SCH (21:22)
[2017-01-26] MEDS: DESYREL PO SCH (21:22)
[2017-01-27] MEDS: HUMALOG SUBQ SCH (06:38)
[2017-01-27 07:06] LABS: CALCIUM 9.1 mg/dL (8.8-10.2); POTASSIUM 4.6 mmol/L (3.5-5.1)
[2017-01-27 07:50] VITALS: BP 144/60
--- NOTE | 2017-01-27 09:06 | PROGRESS NOTE ---
DATE: 01/27/2017 SUBJECTIVE: She is feeling well today. Her procedure went well and she is anticipating discharge. She does complain that whenever she urinates she has also stool incontinence. OBJECTIVE: Vital Signs: Blood pressure 144/60, heart rate 85, respirations 16, afebrile. General: She is a middle-aged woman in no acute distress. Skin: Warm and dry. Eyes: Conjunctivae are pink. Neck: Neck veins are not distended. Heart: Regular without gallops. Lungs: Have equal breath sounds. No crackles. Abdomen: Soft, nontender. Bowel sounds are present. Extremities: Have no edema, clubbing, or cyanosis. Palpable thrill and audible bruit in her left upper arm AV graft. LABORATORY DATA: Sodium 138, potassium 4.6, chloride 98, bicarbonate 23, BUN 87, creatinine 3.9. IMPRESSION: 1. Thrombosed arteriovenous graft. Treated surgically by Dr. Lujan. Stenoses at both the arterial and venous anastomoses were treated and flow has been reestablished. I have removed the right femoral vein Vas-Cath. Okay for discharge from my perspective. 2. Stool incontinence. I will have her referred to urology for outpatient evaluation. cc: Reggie Perry MD
[2017-01-27] MEDS: NICODERM PATCH TD SCH (10:29)
[2017-01-27] MEDS: ZOLOFT PO SCH (10:29)
[2017-01-27] MEDS: TOPROL XL PO SCH (10:30)
[2017-01-27] MEDS: COLACE PO SCH (10:30)
[2017-01-27] MEDS: IMDUR PO SCH (10:30)
[2017-01-27] MEDS: APRESOLINE PO SCH (10:30)
[2017-01-27] MEDS: SODIUM BICARBONATE PO SCH (10:30)
[2017-01-27] MEDS: NORVASC PO SCH (10:31)
[2017-01-27] MEDS: HEPARIN SUBQ SCH (10:31)
[2017-01-27] MEDS: PERIDEX MT SCH (10:31)
[2017-01-27] MEDS: NEURONTIN PO SCH (10:31)
--- NOTE | 2017-01-27 17:32 | DISCHARGE SUMMARY ---
ADMISSION DATE: 01/24/2017 DISCHARGE DATE: 01/27/2017 CONSULTATIONS: 1. Reggie Perry M.D., with Nephrology. 2. Chepe Garrido M.D., with General Surgery. PERTINENT PROCEDURES: 1. Ultrasound-guided right femoral vein dialysis catheter placement performed by Dr. Chepe Garrido. 2. Percutaneous thrombectomy of left upper arm AV graft with AngioJet percutaneous balloon angioplasty of the venous anastomosis and the arterial anastomosis with completion graftogram performed by Dr. Brady Lujan. DISCHARGE DIAGNOSES: 1. End-stage renal disease on hemodialysis. We will continue to follow her regular hemodialysis schedule as an outpatient. 2. Nonfunctional left upper arm graft with poor IV access in the groin. The patient underwent a percutaneous thrombectomy of the left upper arm. AV graft with AngioJet percutaneous balloon angioplasty of the venous anastomosis and the arterial anastomosis was complete. Graftogram performed by Dr. Lujan with removal of her right femoral vein Vas-Cath. 3. Chest pain resolved, stable. 4. Diabetes mellitus type 2, chronic and stable. 5. Hypertension, chronic and stable. 6. Systolic heart failure. Continue current management. 7. Nicotine dependence. The patient has been highly advised on smoking cessation daily. 8. Hyperlipidemia. Continue with home medications. 9. Medical noncompliance. Again daily education with compliance of her medications. 10. Urinary incontinence. Referred to Urology for outpatient evaluation by Dr. Perry. HOSPITAL COURSE: Briefly, Ms. Martinez is a 57-year-old, female, well known to our service with history of end-stage renal disease on hemodialysis, chronic diastolic congestive heart failure, CVA, history of coronary artery disease, hypertension, medical noncompliance, hyperlipidemia, diabetic neuropathy, nicotine dependence, diabetes mellitus type 2 insulin dependent. The patient was admitted by Dr. Perry for AV fistula clot ultimately incurring a hemodialysis catheter placed by Dr. Chepe Garrido. The patient also had a complaint of right-sided chest pain for 4 days stating that it was sharp in nature and intermittent. No radiating quality. No shortness of breath. No diaphoresis. She denied any cough or congestion, recent fever or chills. The patient's troponins were negative. Her chest pain resolved. She continued on her normal scheduled hemodialysis under Dr. Perry. Ms. Martinez had a percutaneous thrombectomy of her left upper arm AV graft performed by Dr. Brady Lujan. Her femoral Vas-Cath was discontinued. She did have some complaints of urinary incontinence. She has been referred to a urologist for outpatient treatment. Dr. Perry and Dr. Lacey spoke, and they felt the patient is appropriate for discharge home today. She will continue on her regular hemodialysis. VITAL SIGNS AT TIME OF DISCHARGE: Temperature is 97.4 degrees, heart rate 85, respirations 16, blood pressure 144/60, O2 is 100% on room air. DISCHARGE DIET: Diabetic. DISCHARGE MEDICATIONS: 1. Norvasc 10 mg p.o. daily. 2. Lipitor 40 mg p.o. at bedtime. 3. Colace 100 mg p.o. daily. 4. Neurontin 300 mg p.o. t.i.d. 5. Apresoline 50 mg p.o. t.i.d. 6. Levemir FlexTouch 20 units subcutaneous at bedtime. 7. Isosorbide mononitrate 30 mg p.o. daily. 8. Toprol-XL 25 mg p.o. daily. 9. Zoloft 50 mg p.o. daily. 10. Sodium bicarbonate 650 mg p.o. b.i.d. 11. Ultram 50 mg p.o. b.i.d. p.r.n. 12. Vistaril 50 mg p.o. at bedtime. FOLLOWUP: 1. Patient is being discharged back home. 2. She will continue on her regular scheduled hemodialysis as well as followup with the urologist for stool incontinence every time she urinates. 3. Patient can return to the ED for any worsening of symptoms. DISCHARGE TIME: 30 minutes. Dictated by CORINA Pastrana for Miguelangel San MD cc: MD Reggie Lazo MD
== END 2017-01-27 11:20 | disposition home or self-care (01) ==
LOC: 4N
PROVIDERS: ADMIT Internal Medicine Nephrology; ATTEND Internal Medicine Nephrology

== ENCOUNTER 2017-05-31 13:16 | Inpatient (IN) ==
--- NOTE | 2017-05-31 14:37 | Diag Imaging Result Doc PS360 ---
EXAM: CHEST-PORTABLE HISTORY: SOB TECHNIQUE: AP portable at 1430 COMMENT: There is dense alveolar opacity obscuring the right heart border and extending into the perihilar region. There is a lesser degree of perihilar opacity on the left side. This was not present on 01/24/2017. IMPRESSION: Pulmonary edema plus minus pneumonia particularly in the right lower lobe and middle lobe. Electronically signed by Olman Mcelroy 05/31/2017 2:34 PM
[2017-05-31 14:44] LABS: URINE MICRO REVIEW NEEDED? NO; URINE SOURCE CATH
[2017-05-31 14:45] LABS: MANUAL DIFF NEEDED? NO
[2017-05-31 14:47] LABS: BILIRUBIN URINE SMALL (NEGATIVE); BLOOD URINE NEGATIVE (NEGATIVE); COLOR YELLOW; GLUCOSE URINE NEGATIVE (NEGATIVE); LEUKOCYTES URINE MODERATE (NEGATIVE); NITRITE URINE NEGATIVE (NEGATIVE); PH URINE 5.5; PROTEIN URINE 50 mg/dL (NEGATIVE); SP GRAVITY URINE 1.017; TURBIDITY URINE CLEAR (CLEAR); UROBILINOGEN URINE 2 mg/dL (NORMAL)
[2017-05-31 14:49] LABS: UR EPITHELIAL CELLS >10 /HPF (<10); URINE BACTERIA NEGATIVE /HPF; URINE CULTURE NEEDED? YES; URINE RBC <10 /HPF (<10); URINE WBC <10 /HPF (<10)
[2017-05-31 14:50] LABS: BASO% 0.5 % (0.0-0.8); HEMATOCRIT 35.7 % (37.0-47.0); HEMOGLOBIN 11.9 g/dL (12.0-16.0); IMM GRAN# 0.04 X1000 (0.0-0.04); IMM GRAN% 0.4 % (0.0-0.5); LYMPH# 0.98 X1000 (1.2-3.4); LYMPH% 9.5 % (20.5-51.1); MCH 32.6 PG (27-31); MCHC 33.3 g/dL (33-37); MCV 97.8 FL (81-99); MONO# 0.64 X1000 (0.11-0.59); MONO% 6.2 % (1.7-9.3); NEUT% 83.4 % (42.2-75.2); PLT 170 X1000 (130-400); RBC 3.65 XMIL (4.2-5.4)
[2017-05-31 14:50] LABS: ALLEN TEST NO; BE -1.8 mmoll (-3.0-3.0); BLOOD TYPE ARTERIAL; DRAW SITE R BRACHIAL; O2(CT) 11.4 mL/dL (15.0-23.0); PCO2(98.6) 29 mmHg (35-45); SAMPLE BLOOD; SAO2 76.9 % (95.0-100.0); THB 10.8 g/dL (11.5-17.4); pH(98.6) 7.47 (7.35-7.45)
[2017-05-31 14:51] LABS: MODALITY ROOM AIR
[2017-05-31 14:52] LABS: PO2(98.6) 40 mmHg (60-100)
[2017-05-31] MEDS ORDERED: VANCOMYCIN 1 GM/NS 1 GM/250 ML IVPB IV ONE (15:07)
[2017-05-31] MEDS ORDERED: ZOSYN 3.375 GM/NS 3.375 GM/50 ML IVPB IV ONE (15:07)
[2017-05-31 15:21] LABS: ALBUMIN 4.9 g/dL (3.5-5.0); CALCIUM 9.7 mg/dL (8.8-10.2); MAGNESIUM 2.3 mg/dL (1.5-2.7); POTASSIUM 4.4 mmol/L (3.5-5.1); TOTAL BILIRUBIN 0.71 mg/dL (0.20-1.00); TOTAL PROTEIN 8.6 g/dL (6.3-8.3)
[2017-05-31 15:42] LABS: CK INDEX 1.8 (0.0-2.5); CK-MB 3.14 ng/mL (0.0-5.0)
--- NOTE | 2017-05-31 16:11 | PROVIDER DOCUMENTATION ---
This chart was entered by Sierra Turcios Scribe, acting as scribe for Ruchi Morales MD. HPI-General Adult - General Chief Complaint: High Blood Sugar Stated Complaint: "FEELING SICK" Time Seen by Provider: 05/31/17 13:51 Source: patient Allergies/Adverse Reactions: Patient Allergies Allergy/AdvReac Type Severity Reaction Status Date / Time No Known Allergies Allergy Verified 05/31/17 14:09 Home Medications: Home Medication List Medication Instructions Recorded Confirmed Last Taken Type Sodium Bicarbonate 650 mg PO BID #60 tablet 07/07/15 05/31/17 05/31/17 09:00 Rx Atorvastatin Calcium [Lipitor] 40 mg PO QHS 08/16/15 05/31/17 05/31/17 08:00 History Amlodipine [Norvasc] 10 mg PO DAILY #30 tablet 04/07/16 05/31/17 05/31/17 08:00 Rx Isosorbide Mononitrate [Isosorbide 30 mg PO DAILY #30 tab.er.24h 04/07/1605/31/17 08:00 Rx Mononitrate ER] Metoprolol Succinate E.r. [Toprol 25 mg PO DAILY #30 tablet 04/07/16 05/31/17 08:00 Rx Xl] Docusate Sodium 100 mg PO DAILY 06/19/16 05/31/17 06/23/16 07:30 History Hydralazine [Apresoline] 50 mg PO TID 06/19/16 05/31/17 05/31/17 08:00 History Gabapentin [Neurontin] 300 mg PO TID 12/02/16 05/31/17 05/31/17 08:00 History Insulin Detemir [Levemir Flextouch] 28 unit SQ QHS 01/23/17 05/31/17 05/30/17 21 :00 History Sertraline [Zoloft] 50 mg PO DAILY #30 tablet 01/27/17 05/31/17 05/31/17 08:00 Rx Tramadol [Ultram] 50 mg PO BID PRN #60 tablet 01/27/17 05/31/17 05/30/17 19:00 Rx - History of Present Illness -Gen Adult Nature of Presenting Problems: Pt is 57 y/o F presents to the ED with shortness of breath, dysuria and cough. Pt states symptoms have been present for 2 days. Pt denies fever and chills. Pt denies nausea, vomiting and diarrhea. Location of Pain/Injury: reports: none Pain Radiation: reports: no radiation Quality of Pain: reports: none Severity: reports: mild Onset/Duration: reports: 2 days ago Timing: reports: still present Context/Activities at Onset: reports: light activity Modifying Factors: improves with: nothing Associated Symptoms: reports: cough, shortness of breath, other (dysuria). denies: anxiety, arm pain, back/neck pain, chest pain, constipation, diaphoresis , diarrhea, dizziness, EENT symptoms, fatigue, fever/chills, genitourinary problems, headaches, heartburn, joint pain, loss of appetite, malaise, muscle aches, sinus congestion/drainage, nausea, rash, seizure, sensory/motor loss, pain with inspiration, swelling/mass in abdomen, syncope, vomiting, weakness, trouble walking Similar Symptoms Previously?: Yes (present for 2 days ) Recently seen or treated by another doctor?: No - Diabetes Related Context Context: reports: high blood sugar Review of Systems - Adult - REVIEW OF SYSTEMS - ADULT Constitutional: denies: chills, fever Eyes: denies: blurred vision, double vision, redness Ears, Nose, Mouth & Throat: denies: ear pain, nose pain, throat pain Cardiovascular: denies: chest pain, heart murmur, irregular heart rate Respiratory: reports: cough, shortness of breath. denies: wheezing Gastrointestinal: denies: abdominal pain, diarrhea, nausea, vomiting Genitourinary: reports: dysuria. denies: flank pain, hematuria Musculoskeletal: denies: bone pain, joint pain, neck pain Integumentary: denies: hives, itching, rash Neurological: denies: dizziness/vertigo, headache/migraines, numbness, slurred speech, syncope Psychiatric: reports: no symptoms reported Endocrine: reports: no symptoms reported Hematologic/Lymphatic: reports: no symptoms reported Allergic/Immunologic: reports: no symptoms reported All Other Systems: Reviewed and Negative Past History - Adult - PAST MEDICAL HISTORY-ADULT Review of Records: reports: Nursing Assessment Review, Medications Reviewed, Social history reviewed & non-contributory. Major Childhood Illnesses: reports: denies history Cardiovascular: reports: arrhythmia, CAD, CHF, HTN, ND, PVD Respiratory: reports: denies history Gastrointestinal: reports: denies history Obstetrical/Gynecological: reports: denies history Genitourinary: reports: dialysis, kidney disease Musculoskeletal: reports: denies history Neurological: reports: CVA Psychiatric: reports: denies history Endocrine/Immune: reports: Diabetes Other Conditions: reports: denies history - PRIOR SURGERIES/PROCEDURES Surgical/Procedure History: reports: , orthopedic (extremity), other - PRIOR HOSPITALIZATIONS Prior Hospitalizations: reports: none - IMMUNIZATION STATUS Childhood Immunizations: See Nurse Assessment Flu Vaccine: See Nurse Assessment - FAMILY HISTORY Family History: reviewed, not pertinent - SOCIAL HISTORY Smoking: cigarettes, greater than 1 pack/day Provider spent 3-5 mins advising pt. on dangers of tobacco.: Discussed manners to quit use, and f/u contacts for add'l counseling. Substance Use: denies Living Situation: family Physical Exam-General - PHYSICAL EXAM-ADULT Initial Vital Signs Reviewed: Yes - CONSTITUTIONAL General Appearance: appears well, alert, no apparent distress. negative: lethargic, slow to respond - EYES Eyes: PERRL/EOMI, pink conjunctivae. negative: pale conjunctivae, sunken eyes - HEAD, EARS, NOSE, MOUTH & THROAT HENMT: normocephalic/atraumatic, moist mucous membranes, normal ENT inspection. negative: angioedema, hearing deficit - NECK Neck: non-tender, normal inspection. negative: lymphadenopathy, tender lateral - RESPIRATORY Respiratory: chest non-tender, lungs clear, normal breath sounds. negative: crackles, stridor, increased rate - CARDIOVASCULAR Cardiovascular: normal peripheral pulses, regular rate, rhythm. negative: tachycardia, systolic murmur - GASTROINTESTINAL (ABDOMEN) Abdominal Exam: normal bowel sounds, non tender, soft. negative: distended, rebound, hernia - LYMPHATIC Lymphatic: no adenopathy. negative: enlargement, striations, streaking - MUSCULOSKELETAL Back Exam: normal inspection, no CVA tenderness, no vertebral tenderness. negative: ecchymosis, muscle spasm Extremity: other (right AKA and left BKA). negative: erythema, swelling - SKIN Integumentary: normal color, normal turgor, warm/dry. negative: ecchymosis, erythema, swelling, tenderness - NEUROLOGIC Neurologic: grossly normal. negative: aphasia, facial droop - PSYCHIATRIC Psych/Mental Status: normal mood/affect, oriented x 3. negative: paranoid, tearful Progress - PLAN OF CARE/RESULTS Progress/Plan/Lab Results: Vital Signs - 8 hr 05/31/17 13:30 Temperature 98.2 F Pulse Rate 78 Respiratory Rate 18 Blood Pressure 136/49 O2 Sat by Pulse Oximetry 100 Orders Category Date Time Status FSBS [Finger Stick Blood Sugar (ED)] DIRECTED Care 05/31/17 13:37 Active Result Diagrams: 05/31/17 14:25 05/31/17 14:25 - XRAY 1 XRAY Study: Chest Impression: Abnormal (pulmonary edema plus minus pneumonia particulary in the right lower lobe and middle lobe.) - CONSULTS/PCP/HOSPITALIST Notification #1 *Consult/PCP/Hospitalist*: CORINA Cheung for Hospitalist Time Discussed: 15:32 (Dr. Lacey accepted admit ) Reason/Comments: Dr. Morales consulted with CORINA Cheung about Pt. Consult Disposition: Admit Departure - Departure Date of Disposition Decision: 05/31/17 Time of Disposition Decision: 15:33 DIAGNOSIS: Pneumonia, Respiratory failure Disposition: ADMITTED INPATIENT 09 Certified Medical Emergency: Emergent Condition: Fair Referrals and Follow-Ups: None,PCP [Primary Care Provider] - - Critical Care Note This patient required my direct & personal management of CC.: Yes Total Time (mins): 45 Critical Care Statement: This patient required my direct personal management to treat or rule out processes, the absence of which, could potentiallly result in sudden, clinically significant life or limb threatening deterioration. Attestation - Physician/ [place] Attestation Patient care was provided by Advanced Practice Provider:: No The physician spent face to face time with patient:: Yes Advanced Practice Provider documentation review:: Supervising physician onsite and consulted in the evaluation and care of this patient. The physician did have a face to face encounter with the patient. This chart was documented by the indicated scribe, (Sierra Turcios Scribe) and accurately reflects the services I performed and decisions made by me, Ruchi Morales MD, as attested by the provider's signature.
[2017-05-31] MEDS ORDERED: TYLENOL PO PRN (16:51)
--- NOTE | 2017-05-31 17:11 | HISTORY AND PHYSICAL ---
CHIEF COMPLAINT: Shortness of breath. HISTORY OF PRESENT ILLNESS: A 57-year-old female with a past medical history of CHF, systolic and diastolic, diabetes mellitus, end-stage renal disease on hemodialysis Thursday, Thursday, and Thursday via her left AV fistula, severe coronary artery disease, but apparently was unable to be bypassed or percutaneous intervention, hypertension, medical noncompliance, severe peripheral vascular disease, diabetic neuropathy, dyslipidemia, CVA x2, bilateral lower extremity amputation. Came to the medical emergency department with a chief complaint off shortness of breath that started 2 days ago and it has been progressively getting worse. This patient denies nausea, vomiting, no constipation, but she states that she has been having some loose stools for the past 3 days. No fever. No chills. At the emergency department she was found to have a low oxygen saturation even with 4 L of nasal cannula, around 82%. X-ray performed showed a right lower lobe pneumonia and pulmonary vascular congestion, this is why we decided to admit this patient for antibiotic treatment and also oxygen therapy. Dr. Perry from Nephrology Department will be consulted due to her end-stage renal disease. REVIEW OF SYSTEMS: All 14 points of review of systems were reviewed. All of them negative except as per HPI. PAST MEDICAL HISTORY: 1. Chronic systolic and diastolic congestive heart failure. Last echocardiogram was done on 12/02/2016 and showed an ejection fraction around 50% with mild hypokinesis, mostly at the of the inferior septal region. 2. Poorly controlled insulin-dependent diabetes mellitus. 3. End-stage renal disease on hemodialysis Thursday, Thursday, and Thursday via her left AV fistula. 4. Severe coronary artery disease. 5. Hypertension. 6. Medical noncompliance. 7. Severe peripheral vascular disease with bilateral lower extremity amputation. 8. Diabetic neuropathy. 9. Dyslipidemia. 10. History of CVA x2. PAST SURGICAL HISTORY: Left AV graft, bilateral above the amputation. SOCIAL HISTORY: She denies alcohol and drugs, apparently she is still smoking. She did not tell me details about it. FAMILY HISTORY: Diabetes, hypertension and coronary artery disease. ALLERGIES: No known allergies. PHYSICAL EXAMINATION: VITAL SIGNS: Pulse 75, respiratory rate 30, blood pressure 139/83, oxygen saturation 100% on BiPAP, 50% FiO2. HEENT: Normocephalic. No trauma. PERRLA. NECK: Supple. JVD, no masses. Central trachea. CHEST: Decreased breath sounds globally with rhonchi at the level of the right mid and lower lobe lung. ABDOMEN: Soft, nontender, nondistended. No hepatosplenomegaly. EXTREMITIES: No edema. Bilateral lower extremity amputation. NEUROLOGICAL: The patient is alert and oriented x3. No focal deficits. LABORATORY: WBC 10.3, hemoglobin 11.9, hematocrit 35.7, platelets 170,000. Sodium 132, potassium 4.4, chloride 87, bicarbonate 20, BUN 84, creatinine 6.7, glucose 163, calcium 9.7, magnesium 2.3. AST 60, ALT 56. alkaline phosphatase 109. Troponins 2.6. ASSESSMENT AND PLAN: 1. Right lower lung pneumonia, I will place this patient on ceftriaxone and azithromycin. She is not having fever or chills, but she is feeling weak for the past 2 days and with shortness of breath. We will monitor. 2. End-stage renal disease. I will consult Dr. Perry for evaluation. She is scheduled for dialysis every Thursday, Thursday, and Thursday. 3. Type 2 diabetes. Continue with her pattern blood sugar and sliding scale insulin. 4. History of severe coronary artery disease. She has an elevated troponins that I believe are secondary to her end-stage renal disease, she is not complaining of chest pain. I will ask for an EKG and monitor. 5. Hypertension. Her blood pressure has been stable. Continue with home medication. 6. Severe peripheral vascular disease, aware. Continue with the same management. 7. Gastroesophageal reflux disease. I will put this patient on PPIs. 8. Deep vein thrombosis prophylaxis. We will do heparin subcutaneous q.12 hours. 9. Tobacco abuse. This patient has been highly advised against tobacco use. I will continue with daily cessation education. Further recommendations pending hospital course. cc: Miguelangel San MD
[2017-05-31] MEDS ORDERED: ULTRAM PO PRN (17:26)
[2017-05-31] MEDS: ROCEPHIN 1 GM/NS 1 GM/50 ML IVPB IV SCH (20:10)
[2017-05-31] MEDS: NEURONTIN PO SCH (20:10)
[2017-05-31] MEDS: APRESOLINE PO SCH (20:10)
[2017-05-31] MEDS ORDERED: ATIVAN IV ONE (20:50)
[2017-05-31] MEDS: ZITHROMAX 500 MG/NS 500 MG/250 ML IVPB IV SCH (21:14)
[2017-05-31] MEDS: LEVEMIR SUBQ SCH (21:39)
[2017-05-31] MEDS: HEPARIN SUBQ SCH (21:40)
[2017-05-31] MEDS: SODIUM BICARBONATE PO SCH (21:42)
[2017-05-31] MEDS: LIPITOR PO SCH (21:43)
[2017-06-01 01:52] LABS: CALCIUM 9.2 mg/dL (8.8-10.2); MAGNESIUM 2.2 mg/dL (1.5-2.7)
--- NOTE | 2017-06-01 05:18 | EKG Report ---
Test Performed on : 06/01/2017 01:04:12 AM Test Reason : 5 Beat Run of V-Tach per telemetry Blood Pressure : / mmHG Vent. Rate : 083 BPM Atrial Rate : 083 BPM P-R Int : 132 ms QRS Dur : 112 ms QT Int : 380 ms P-R-T Axes : 052 012 162 degrees QTc Int : 446 ms Normal sinus rhythm. Possible Left atrial enlargement Incomplete left bundle branch block ST \T\ T wave abnormality, consider inferior ischemia ST \T\ T wave abnormality, consider anterolateral ischemia Abnormal ECG When compared with ECG of 31-MAY-2017 17:56, (Unconfirmed) ST more depressed in Anteroseptal leads T wave inversion less evident in far lateral leads V5-V6 Confirmed by Ramin Long DO ([id number]) on 06/04/2017 7:03:02 AM
--- NOTE | 2017-06-01 05:35 | EKG Report ---
Test Performed on : 05/31/2017 5:56:00 PM Test Reason : SOB Blood Pressure : / mmHG Vent. Rate : 075 BPM Atrial Rate : 075 BPM P-R Int : 136 ms QRS Dur : 108 ms QT Int : 410 ms P-R-T Axes : 060 015 172 degrees QTc Int : 457 ms Normal sinus rhythm. Left atrial enlargement Incomplete left bundle branch block ST \T\ T wave abnormality, consider inferolateral ischemia Abnormal ECG When compared with ECG of 31-MAY-2017 14:50, (Unconfirmed) No significant change was found Confirmed by Ramin Long DO ([id number]) on 06/08/2017 6:13:59 PM
--- NOTE | 2017-06-01 05:35 | EKG Report ---
Test Performed on : 05/31/2017 2:50:35 PM Test Reason : Chest Pain Blood Pressure : / mmHG Vent. Rate : 079 BPM Atrial Rate : 079 BPM P-R Int : 142 ms QRS Dur : 108 ms QT Int : 406 ms P-R-T Axes : 064 001 157 degrees QTc Int : 465 ms Normal sinus rhythm. Possible Left atrial enlargement Incomplete left bundle branch block Marked ST abnormality, possible anterior subendocardial injury Abnormal ECG When compared with ECG of 24-JAN-2017 15:04, Significant changes have occurred Unconfirmed Result
[2017-06-01] MEDS ORDERED: NS 2,000 ML ONE ×2 (07:02→11:13)
[2017-06-01] MEDS ORDERED: HEPARIN ONE ×2 (07:02→11:13)
[2017-06-01 07:15] LABS: MANUAL DIFF NEEDED? NO
[2017-06-01 07:31] LABS: BASO% 0.4 % (0.0-0.8); EOS# 0.01 X1000 (0.0-0.7); EOS% 0.1 % (0.0-10.0); HEMATOCRIT 33.8 % (37.0-47.0); HEMOGLOBIN 11.1 g/dL (12.0-16.0); IMM GRAN# 0.04 X1000 (0.0-0.04); IMM GRAN% 0.4 % (0.0-0.5); LYMPH# 1.19 X1000 (1.2-3.4); LYMPH% 10.4 % (20.5-51.1); MCH 32.5 PG (27-31); MCHC 32.8 g/dL (33-37); MCV 98.8 FL (81-99); MONO# 0.76 X1000 (0.11-0.59); MONO% 6.7 % (1.7-9.3); MPV 12.8 FL (7.4-10.4); PLT 168 X1000 (130-400); RBC 3.42 XMIL (4.2-5.4)
[2017-06-01] MEDS: PRILOSEC PO SCH (07:32)
[2017-06-01] MEDS ORDERED: TIGHT: 0.2 ML/HR MISC PRN (08:00)
[2017-06-01] MEDS ORDERED: NS 2,000 ML MISC PRN (08:00)
[2017-06-01] MEDS ORDERED: HEPARIN IV PRN (08:00)
[2017-06-01 08:15] LABS: CALCIUM 9.3 mg/dL (8.8-10.2); POTASSIUM 4.7 mmol/L (3.5-5.1)
[2017-06-01] MEDS: NORVASC PO SCH (08:46)
[2017-06-01] MEDS: COLACE PO SCH (08:46)
[2017-06-01] MEDS: ZOLOFT PO SCH (08:46)
[2017-06-01] MEDS: APRESOLINE PO SCH ×3 (08:46→16:13)
[2017-06-01] MEDS: SODIUM BICARBONATE PO SCH ×2 (08:46→21:06)
[2017-06-01] MEDS: IMDUR PO SCH (08:46)
[2017-06-01] MEDS: NEURONTIN PO SCH ×3 (08:46→16:13)
[2017-06-01] MEDS: HEPARIN SUBQ SCH ×2 (08:46→21:05)
[2017-06-01] MEDS ORDERED: TOPROL XL PO SCH (09:00)
--- NOTE | 2017-06-01 16:37 | ECHO REPORT ---
ORDER DATE: 06/01/2017 INDICATIONS: Non ST elevation myocardial infarction. FINDINGS: 1. This is a limited study with limited Doppler evaluation performed. Overall, the right heart was incompletely evaluated. There does appear to be; however, normal RV systolic function on limited views. Degree of tricuspid regurgitation was not completely evaluated, but the RV systolic pressure was measured at 49. 2. Mild pulmonic insufficiency. 3. Normal left atrial size at 3.3 cm. 4. No mitral prolapse. Mild mitral regurgitation. 5. Normal left ventricular size with an end-diastolic dimension of 4.8. Normal wall thicknesses with a posterior and interventricular septal wall thickness of 0.8 and 1.1 cm, respectively. There is mild to moderate reduction in RV and LV systolic function. The estimated ejection fraction is around 40%. There does appear to be hypokinesis of inferior and inferior septal calvo. 6. Aortic valve opens well. It is sclerotic. No evidence of stenosis or insufficiency. 7. Aorta appears normal in visualized segments. 8. There is a suggestion of a pleural effusion on this study. cc: MD Alessandra Velarde PA
[2017-06-01] MEDS ORDERED: INSULIN PEN NEEDLES ONE (16:38)
--- NOTE | 2017-06-01 16:54 | PROGRESS NOTE ---
DATE: 06/01/2017 SUBJECTIVE: The patient states that she is feeling better. She has no complaint of chest pain. No shortness of breath right now. She had dialysis today and, during the dialysis, she was complaining of lower back pain and neck pain on the sides. OBJECTIVE: Vital Signs: Temperature 98.1 degrees, pulse 77, respiratory rate 16, blood pressure 139/56, oxygen saturation 96% on a nonrebreathing mask. HEENT: Head normocephalic. No trauma. PERRLA. Neck: Supple. No JVD. No masses. Central trachea. Chest: Decreased breath sounds globally, with rhonchi at the level of the right mid and lower lobes. Abdomen: Soft, nontender, nondistended. No hepatosplenomegaly. Extremities: No edema. Bilateral lower extremity amputation. Neurological: The patient is alert and oriented x3. No deficits. LABORATORIES: WBC 11.4, hemoglobin 11.1, hematocrit 33.8, platelets 168,000. Sodium 136, potassium 4, chloride 91, bicarbonate 21, BUN 97, creatinine 7.2, glucose 177, calcium 9.2, magnesium 2.2. Troponin is 2.8. ASSESSMENT AND PLAN: 1. Right lower lung pneumonia. Continue with ceftriaxone and azithromycin. She is not having fever or chills, but she is having shortness of breath. Continue with oxygen supplementation and breathing treatment. 2. Likely acute coronary syndrome. Her troponins are elevated, and also she has some EKG changes. I do not think she is going to have any kind of intervention. Everything is going to be managed medically. Cardiology Department on board. 3. End-stage renal disease. She has been dialyzed today. 4. Type 2 diabetes. Continue with pattern blood sugar and sliding-scale insulin. 5. History of coronary artery disease with elevated troponins. Aware. 6. Hypertension. Her blood pressure has been stable. 7. Severe peripheral vascular disease. Aware. Continue with the same management. 8. Gastroesophageal reflux disease. Continue with proton pump inhibitors. 9. Deep vein thrombosis prophylaxis. We will do heparin subcutaneously q.12 hours. 10. Tobacco abuse. This patient has been highly advised against tobacco use. I will continue with daily cessation education. cc: Miguelangel San MD MTDD
[2017-06-01] MEDS: ROCEPHIN 1 GM/NS 1 GM/50 ML IVPB IV SCH (17:20)
--- NOTE | 2017-06-01 17:34 | CONSULTATION ---
DATE OF CONSULTATION: 06/01/2017 REASON FOR ADMISSION: Shortness of breath, right lower lobe pneumonia. REASON FOR CONSULTATION: Assist with management, ESRD. CONSULTING PHYSICIAN: Miguelangel San MD. HISTORY OF PRESENT ILLNESS: This is a 57-year-old female, well-known to our service for end-stage renal disease on hemodialysis on a Thursday, Thursday, Thursday schedule. She also has a history of diastolic and systolic CHF. The patient came into the emergency room on the day of admission secondary to shortness of breath that started 2 days prior to admission that is progressively getting worse. She had attended her last dialysis treatment on Thursday as per her normal. In the emergency room she was found have a low O2 saturation around 82% even with O2 supplementation. Imaging indicated right lower lobe pneumonia and pulmonary vascular congestion. The patient was admitted to the hospital for further workup and treatment. This morning she has been on 15 L O2 on her nonrebreather. She initially started dialysis and within an hour of dialyzing she has now been weaned down to at least 8 L of O2 on her nonrebreather. The patient states that she has had no other symptoms aside from shortness of breath and cough. PAST MEDICAL HISTORY: 1. End-stage renal disease on hemodialysis Thursday, Thursday, Thursday. 2. CHF systolic and diastolic. She has a 50% ejection fraction and mild hypokinesis. 3. Poorly controlled insulin pinned to diabetes. 4. Severe coronary artery disease. 5. Hypertension. 6. Peripheral vascular disease and bilateral lower extremity amputations secondary to that. 7. Diabetic neuropathy. 8. Dyslipidemia. 9. History of CVA x2. 10. Medical noncompliance. SURGICAL HISTORY: She has a left AV graft. She has had bilateral BKA amputations. ALLERGIES: No known drug allergies. HOME MEDICATIONS: Sodium bicarbonate, Lipitor, Toprol, isosorbide, Norvasc, Docusate, Apresoline, Neurontin, Levemir, Ultram, Zoloft. SOCIAL HISTORY: Continues to smoke. Denies ETOH or illicit drug use. FAMILY HISTORY: Diabetes, hypertension, coronary artery disease. REVIEW OF SYSTEMS: Shortness of breath, cough. PHYSICAL EXAMINATION: Vital Signs: Temperature 99.3 degrees, pulse 80, respiratory rate 32, blood pressure 139/64. Intake 470 mL. Output has not been measured. General: This is a middle-aged female, sitting up in bed, currently undergoing hemodialysis. She is awake, alert, oriented x4. She is in no acute distress. She does have on a nonrebreather mask. HEENT: Normocephalic, atraumatic. PERRLA, conjunctivae pink. Oral mucosa moist. Neck: Supple. There is positive JVD. Trachea midline. No lymphadenopathy. Cardiovascular: Reveals regular rate and rhythm. Positive S4. No murmur. Pulmonary: She has decreased breath sounds. She has rhonchi bilaterally. Abdomen: Soft, positive bowel sounds. Genitourinary: Not inspected. She has minimal void. Hemodialysis assist. Extremities: She has bilateral BKA noted. No upper extremity edema. Integumentary: Skin is warm and dry without rash or lesion. LAB DATA: WBC 11.4, hemoglobin 11.1, hematocrit 33.8, platelet count 168,000. Sodium 136, potassium 4.0, CO2 21, BUN 97, creatinine 7.2. Chest x-ray with right lower lobe pneumonia, pulmonary vascular congestion. ASSESSMENT AND PLAN: 1. End-stage renal disease management. Today is her routine dialysis day. We are unable to determine her actual weight secondary to the bed scale. We will set her for maximum UF and adjust as tolerated. We will plan to repeat her chest x-ray in the morning and will likely need to run her again on dialysis for UF only. 2. Right lower lobe pneumonia. She is on ceftriaxone and azithromycin. 3. Electrolytes acid-base balance. She is on a 2 K bath. Anemia is stable. 4. Blood pressure in target. Dictated by CORINA Chong for Reggie Perry MD Patient seen, data reviewed, discussed with Eliseo Ferrer on 06/01/17. I agree with the above assessment and plan of care. cc: Reggie Perry MD [facility] CENTERAdarsh
[2017-06-01] MEDS: ZITHROMAX 500 MG/NS 500 MG/250 ML IVPB IV SCH (17:44)
--- NOTE | 2017-06-01 18:13 | CONSULTATION ---
DATE OF CONSULTATION: 06/01/2017 IMPRESSION: 1. Mildly elevated troponins consistent with small non ST elevation myocardial infarction. I suspect this very well may have been precipitated by congestive heart failure with resultant increased wall strain in setting of severe multivessel coronary atherosclerosis. 2. Acute on chronic systolic/diastolic heart failure. 3. Severe multivessel coronary atherosclerosis. Last cardiac catheterization study in 2012 demonstrated mild to moderate distal left main coronary stenosis, severe diffuse coronary atherosclerosis in left anterior descending coronary with a focal stenosis of up to approximately 80% severity, severe diffuse coronary atherosclerosis in the left circumflex coronary with a focal stenosis of up to 80%, and occluded right coronary artery. Coronary angiography reviewed. Patient's coronary arteries offer no suitable targets for coronary bypass and are diffusely diseased making percutaneous intervention less likely to be of benefit. 4. End-stage renal disease requiring chronic hemodialysis. 5. Diabetes mellitus, longstanding. 6. Hypertension. 7. Previous cerebrovascular accident on 2 occasions. 8. Severe peripheral vascular disease with bilateral lower extremity amputation. 9. Hyperlipidemia. 10. Chronic ongoing cigarette use at a rate of 1 pack of cigarettes per day. RECOMMENDATIONS: 1. Follow up echocardiography. Per my review this demonstrates left ventricular ejection fraction approximately 40% with basal to mid inferolateral hypokinesis. 2. Volume removal with dialysis. 3. Given severe diffuse nature of patient's coronary atherosclerosis and lack of suitable targets for coronary bypass, continued medical management is appropriate. We will optimize beta chon utilizing carvedilol. 4. Smoking cessation strongly advised. We will utilize nicotine patch. HISTORY: This 57-year-old female with past history of end-stage renal disease requiring hemodialysis, severe multivessel coronary atherosclerosis, diabetes mellitus, severe peripheral vascular disease, 2 previous cerebrovascular accidents, hyperlipidemia, hypertension, and chronic ongoing cigarette use was admitted with progressive dyspnea symptoms. She had some back discomfort and neck discomfort but no chest pain. She relates worsening shortness of breath over 2 or 3 days. She is found to have signs of congestive heart failure. Serial troponins were abnormal showing initial troponin 2.64 and follow-up troponin 2.67 and 2.81. For this reason, Cardiology was consulted. She has history of severe 3 vessel coronary atherosclerosis. Left coronary angiography demonstrates severe multivessel coronary atherosclerosis and medical management was recommended. She was not felt to have suitable targets for coronary bypass grafting and the diffuse nature of her coronary disease made it unlikely that percutaneous intervention would be of any benefit to justify the risk. Unfortunately, she continues to smoke 1 pack of cigarettes per day. PAST MEDICAL HISTORY: 1. End-stage renal disease requiring hemodialysis Thursday, Thursday, Thursday. 2. Diabetes mellitus, longstanding. 3. Severe diffuse multivessel coronary atherosclerosis. 4. Severe peripheral vascular disease with bilateral above-knee amputations. 5. Hypertension. 6. Hyperlipidemia. 7. Two previous cerebrovascular accidents. PAST SURGICAL HISTORY: Also includes section, tonsillectomy, appendectomy, and cholecystectomy. ALLERGIES: She has no known drug allergies. MEDICATIONS: As listed. SOCIAL HISTORY: She lives at home with help. She smokes 1 pack of cigarettes per day. She does not drink alcohol. FAMILY HISTORY: Positive for coronary disease. REVIEW OF SYSTEMS: Pulmonary: Noteworthy for dyspnea and orthopnea but negative for cough. Gastrointestinal: Negative. Constitutional: Negative/noncontributory. Remaining review of systems negative/noncontributory with 14 total systems reviewed. PHYSICAL EXAMINATION: General: This is a chronically ill-appearing, middle-aged -[place] female in no distress on supplemental oxygen with nasal cannula per 100% non-rebreather. She appears older than stated age. Blood pressure 139/56, heart rate 77 and regular. There is no significant jugular venous distention appreciated. Chest: Auscultation of the chest reveals a few inspiratory crackles in the bases bilaterally. Cardiovascular: Reveals a regular rate and rhythm without appreciable murmur or gallop. Abdomen: Soft, nontender. Bowel sounds are normal. Extremities: Remarkable for bilateral lower extremity amputation. Neurologic: Reveals her to be alert, fully oriented. Speech is fluent. She moves all 4 extremities equally well. Skin: Warm and dry. Psychiatric: Reveals mood to be appropriate. DIAGNOSTIC DATA: ECG demonstrates sinus, nonspecific interventricular conduction abnormality, ST and T-wave abnormality, consider inferolateral ischemia. cc: Henrry Chang MD
[2017-06-01] MEDS ORDERED: HUMALOG SUBQ ONE (20:43)
[2017-06-01] MEDS: LIPITOR PO SCH (21:05)
[2017-06-01] MEDS: COREG PO SCH ×2 (21:05→21:10)
[2017-06-01] MEDS: LEVEMIR SUBQ SCH (21:06)
[2017-06-02] MEDS: PRILOSEC PO SCH (07:04)
--- NOTE | 2017-06-02 07:31 | EKG Report ---
Test Performed on : 06/02/2017 06:27:28 AM Test Reason : nstemi Blood Pressure : / mmHG Vent. Rate : 071 BPM Atrial Rate : 071 BPM P-R Int : 134 ms QRS Dur : 110 ms QT Int : 440 ms P-R-T Axes : 050 -12 212 degrees QTc Int : 478 ms Normal sinus rhythm. Left atrial enlargement Incomplete left bundle branch block ST \T\ T wave abnormality, consider inferolateral ischemia Prolonged QT Abnormal ECG When compared with ECG of 01-JUN-2017 01:04, (Unconfirmed) ST less depressed in precordial leads V3-V4-V5 T wave inversion more evident in Inferior leads Clinical Correlation advised Confirmed by Ramin Long DO ([id number]) on 06/06/2017 3:18:10 PM
[2017-06-02] MEDS ORDERED: TIGHT: 0.2 ML/HR MISC PRN (07:55)
[2017-06-02] MEDS ORDERED: NS 2,000 ML MISC PRN (07:55)
[2017-06-02] MEDS ORDERED: HEPARIN IV PRN (07:55)
[2017-06-02 08:05] LABS: CALCIUM 9.3 mg/dL (8.8-10.2); POTASSIUM 3.8 mmol/L (3.5-5.1)
[2017-06-02] MEDS: APRESOLINE PO SCH ×2 (09:56→13:21)
[2017-06-02] MEDS: NEURONTIN PO SCH ×3 (09:57→17:46)
--- NOTE | 2017-06-02 10:42 | PROGRESS NOTE ---
DATE: 06/02/2017 SUBJECTIVE: This patient states that she is feeling better. She is not complaining of shortness of breath or chest pain. She is complaining of right upper quadrant abdominal cramp. That started after dialysis. She is getting dialysis at this moment. OBJECTIVE: Vital Signs: Temperature 98.3 degrees, pulse 71, respiratory rate 18, blood pressure 138/64, oxygen saturation 100% on a nonrebreathing mask. HEENT: Head normocephalic, no trauma. PERRLA. Neck: Supple. No JVD. No masses. Central trachea. Cardiovascular: RRR. Chest: Decreased breath sounds globally with rhonchi at the level of the right mid and lower lobe. Abdomen: Soft, nontender, nondistended. No hepatosplenomegaly. Extremities: No edema. Bilateral lower extremity amputation. Neurological Examination: Patient is alert and oriented x3. No deficits. LABORATORY: Sodium 141, potassium 3.8, chloride 94, bicarbonate 22, BUN 91, creatinine 6.5, glucose 92, calcium 9.3. ASSESSMENT AND PLAN: 1. Right lower lung pneumonia. Continue with ceftriaxone and azithromycin. She is not having fever or chills, but she has been complaining of shortness of breath. Today, she feels better. Continue with oxygen supplementation and breathing treatment. 2. Likely acute coronary syndrome. It looks like she has a non-ST elevation myocardial infarction. Cardiology is following this patient closely. We are going to treat this patient medically. No intervention at this time. 3. End-stage renal disease. She is getting dialysis right now. 4. Type 2 diabetes. Continue with the pattern of blood sugar and sliding scale insulin. Blood sugar looks controlled. 5. History of coronary artery disease with elevated troponins, aware. 6. Hypertension. Her blood pressure has been stable. 7. Severe peripheral vascular disease. Aware. Continue with the same management. 8. Gastroesophageal reflux disease. Continue with proton pump inhibitors. 9. Deep vein thrombosis prophylaxis. I will continue doing heparin subcutaneously q. 12 hours. 10. Tobacco abuse. This patient has been highly advised against tobacco abuse. I will continue with daily cessation education. cc: Miguelangel San MD
--- NOTE | 2017-06-02 12:36 | Diag Imaging Result Doc PS360 ---
CHEST-1 VIEW - 06/02/2017 INDICATION: reassess pulmonary edema TECHNIQUE: COMPARISON: 05/31/2017 FINDINGS: There is significant improvement in the pulmonary edema. Stable mild cardiomegaly and pulmonary vascular congestion. There are trace pleural effusions. IMPRESSION: Significant improvement from prior. Electronically signed by Chi Middleton 06/02/2017 12:34 PM
--- NOTE | 2017-06-02 13:13 | PROGRESS NOTE ---
DATE: 06/02/2017 SUBJECTIVE: She is still on a closed face mask, but states she is much better. Denies shortness of breath. No other complaints. OBJECTIVE: Vital Signs: Blood pressure 138/64, heart rate 71, afebrile, weight 57.3 kg. General: On physical exam, no acute distress. Skin: Warm and dry. Eyes: Conjunctivae are pink. Neck: Neck veins are not visible. Trachea is midline. Heart: Regular with a gallop. Lungs: Have equal breath sounds. No crackles. Abdomen: Soft, nontender. Bowel sounds are present. Extremities: Have no edema, clubbing, or cyanosis. LABORATORY DATA: Sodium 141, potassium 3.8, chloride 94, bicarbonate 22, BUN 91, creatinine 6.5, hemoglobin 11.1. IMPRESSION: 1. Volume overload. She is undergoing repeat dialysis treatment today with hemofiltration only with a goal of 3 to 4 liters ultrafiltration. We will wean her FiO2 based on her oxygen saturation. 2. End-stage renal disease. She will continue her routine schedule otherwise. 3. Anemia. Continue her erythropoietin while she is an inpatient. 4. Hypertension. Blood pressure is acceptable. cc: Reggie Perry MD
[2017-06-02] MEDS: NORVASC PO SCH (13:21)
[2017-06-02] MEDS: HEPARIN SUBQ SCH ×2 (13:21→21:18)
[2017-06-02] MEDS: COLACE PO SCH (13:21)
[2017-06-02] MEDS: ZOLOFT PO SCH (13:22)
[2017-06-02] MEDS: IMDUR PO SCH (13:22)
[2017-06-02] MEDS: COREG PO SCH ×2 (13:22→21:25)
--- NOTE | 2017-06-02 17:30 | PROGRESS NOTE ---
DATE: 06/02/2017 SUBJECTIVE: Patient continues without dyspnea or chest discomfort on room air. OBJECTIVE: Vital Signs: Blood pressure 138/64, heart rate 71 and regular. Neck: There is no significant jugular venous distention. Chest: Clear to auscultation. Cardiac Exam: Reveals a regular rate and rhythm without appreciable murmur or gallop. IMPRESSION: 1. Recent mildly elevated troponins consistent with small non-ST elevation myocardial infarction probably provoked by congestive heart failure/volume overload in the setting of severe multivessel coronary atherosclerosis. 2. Acute on chronic systolic/diastolic heart failure, improved. 3. Severe multivessel coronary atherosclerosis which is very diffuse in nature. 4. End-stage renal disease requiring chronic hemodialysis. 5. Diabetes mellitus. 6. Hypertension. 7. Previous cerebrovascular accident. 8. Hyperlipidemia. 9. Chronic cigarette use. RECOMMENDATIONS: 1. Optimize medical therapy. Will try and increase Coreg and reduce hydralazine as tolerated. 2. Smoking cessation strongly advised. 3. Given severe diffuse nature patient's coronary atherosclerosis and lack of suitable targets for coronary bypass, continued medical management is appropriate. cc: Henrry Chang MD
[2017-06-02] MEDS: ROCEPHIN 1 GM/NS 1 GM/50 ML IVPB IV SCH (17:46)
[2017-06-02] MEDS: ZITHROMAX 500 MG/NS 500 MG/250 ML IVPB IV SCH (18:44)
[2017-06-02] MEDS: LEVEMIR SUBQ SCH (21:18)
[2017-06-02] MEDS: LIPITOR PO SCH (21:18)
[2017-06-02] MEDS: HUMALOG SUBQ SCH (21:19)
[2017-06-03] MEDS: HUMALOG SUBQ SCH ×4 (06:14→21:16)
[2017-06-03] MEDS: PRILOSEC PO SCH (06:15)
[2017-06-03] MEDS ORDERED: TIGHT: 0.2 ML/HR MISC PRN (07:26)
[2017-06-03] MEDS ORDERED: NS 2,000 ML MISC PRN (07:26)
[2017-06-03] MEDS ORDERED: HEPARIN IV PRN (07:26)
[2017-06-03 07:32] LABS: BASO% 0.6 % (0.0-0.8); EOS# 0.65 X1000 (0.0-0.7); EOS% 8.1 % (0.0-10.0); HEMATOCRIT 32.6 % (37.0-47.0); HEMOGLOBIN 10.7 g/dL (12.0-16.0); IMM GRAN# 0.07 X1000 (0.0-0.04); IMM GRAN% 0.9 % (0.0-0.5); LYMPH# 1.04 X1000 (1.2-3.4); MANUAL DIFF NEEDED? NO; MCH 32.7 PG (27-31); MCHC 32.8 g/dL (33-37); MCV 99.7 FL (81-99); MONO# 0.55 X1000 (0.11-0.59); MONO% 6.9 % (1.7-9.3); MPV 12.5 FL (7.4-10.4); NEUT% 70.5 % (42.2-75.2); PLT 168 X1000 (130-400); RBC 3.27 XMIL (4.2-5.4)
[2017-06-03 07:51] LABS: POTASSIUM 4.1 mmol/L (3.5-5.1)
[2017-06-03] MEDS ORDERED: HEPARIN ONE (07:57)
[2017-06-03] MEDS ORDERED: NS 2,000 ML ONE (07:57)
--- NOTE | 2017-06-03 09:42 | Diag Imaging Result Doc PS360 ---
EXAM: CT HEAD W/O CONTRAST HISTORY: AMS TECHNIQUE: CT of the head without contrast with dose reduction (clarity.) COMMENT: There is encephalomalacia in the right cerebellar hemisphere, the left frontal lobe and there are patchy areas of lucency throughout the white matter particularly in the frontal lobes with multiple lacunae a present in the basal ganglia bilaterally. There is evidence of subacute ischemia in the right parietal convexity extending to the area of the sylvian fissure. This was not present on 12/01/2016. The other chronic changes as described above were apparently present on the previous study. IMPRESSION: Extensive chronic ischemic change with subacute/acute infarct in the right middle cerebral distribution, affecting a fairly large portion of the right parietal lobe. The findings were discussed with Reggie Perry MD at 06/03/2017 9:39 AM. Electronically signed by Olman Mcelroy 06/03/2017 9:39 AM
[2017-06-03] MEDS ORDERED: ASPIRIN PO ONE (09:45)
[2017-06-03] MEDS ORDERED: ZOFRAN IV PRN (09:55)
[2017-06-03] MEDS: COLACE PO SCH (10:11)
[2017-06-03] MEDS: EPOGEN SUBQ SCH ×2 (10:11→11:56)
[2017-06-03] MEDS: APRESOLINE PO SCH ×3 (10:11→19:30)
[2017-06-03] MEDS: COREG PO SCH (10:11)
--- NOTE | 2017-06-03 10:23 | EKG Report ---
Test Performed on : 06/03/2017 10:01:17 AM Test Reason : new stroke Blood Pressure : / mmHG Vent. Rate : 076 BPM Atrial Rate : 076 BPM P-R Int : 138 ms QRS Dur : 108 ms QT Int : 414 ms P-R-T Axes : 059 -05 136 degrees QTc Int : 465 ms Normal sinus rhythm. Possible Left atrial enlargement Septal infarct , age undetermined ST \T\ T wave abnormality, consider inferolateral ischemia Abnormal ECG When compared with ECG of 02-JUN-2017 06:27, (Unconfirmed) T wave inversion less evident in Inferior leads ST less depressed in high-lateral leads1 and AVL ST more depressed in far lateral leads [id number] Confirmed by Ramin Long DO ([id number]) on 06/06/2017 3:37:03 PM
--- NOTE | 2017-06-03 11:25 | Diag Imaging Result Doc PS360 ---
EXAM: MRA BRAIN W/O CONTRAST HISTORY: stroke TECHNIQUE: MRA of the brain, 3-D [id number] COMMENT: There are stenotic lesions in both posterior cerebral artery is somewhat with her particularly severe stenosis in the P1 segment on the left and apparent stenosis of the posterior communicating artery as well on the left. The posterior communicating artery is not visible on the right side. There are apparent the distal stenotic lesions present in the sylvian branches of both middle cerebral arteries. There is a stenosis in the anterior cerebral artery on the right side which appears to extend for a distance of over 3 mm. This is about 1.7 cm from the takeoff of the anterior communicating artery. There is no evidence of aneurysm. IMPRESSION: Stenoses in both posterior cerebral arteries, the sylvian branches of the middle cerebral arteries, and the right anterior cerebral artery as described. Electronically signed by Olman Mcelroy 06/03/2017 11:23 AM
--- NOTE | 2017-06-03 11:30 | Diag Imaging Result Doc PS360 ---
EXAM: MRI BRAIN W/O CONTRAST HISTORY: new cva TECHNIQUE: MRI of the brain, diffusion-weighted axial, axial T1, T2, sagittal T1, coronal gradient echo. COMMENT: There is a small focus of restricted diffusion in the right cerebellar hemisphere. This is associated with some chronic ischemic encephalomalacic changes in the inferior portion of the right hemisphere. There is also chronic encephalomalacia in the left frontal lobe. There is extensive restricted diffusion extending from the occipital lobe around the posterior portion of the sylvian fissure and into the parietal convexity posteriorly on the right. This is consistent with an acute or subacute infarction. There is no evidence of bleed, mass effect, or abnormal extra-axial fluid collection. There is chronic ischemic white matter change throughout to the subcutaneous cortical and periventricular white matter in both anterior parietal and frontal regions. There are some areas of chronic ischemic change present in the midbrain. IMPRESSION: Extensive chronic ischemic change in both cerebral hemispheres and in the right cerebellar hemisphere. Acute ischemia in the right parietal lobe and a small acute lacunar infarction in the right cerebellar hemisphere. Electronically signed by Olman Mcelroy 06/03/2017 11:28 AM
[2017-06-03] MEDS: HEPARIN SUBQ SCH ×2 (11:55→21:16)
[2017-06-03] MEDS: IMDUR PO SCH (11:55)
[2017-06-03] MEDS: NORVASC PO SCH (11:55)
[2017-06-03] MEDS: ZOLOFT PO SCH (11:55)
--- NOTE | 2017-06-03 12:43 | PROGRESS NOTE ---
DATE: 06/03/2017 SUBJECTIVE: Today at approximately 0930 Dr. Ramirez was notified by Dr. Perry of the patient's neurological changes. She was sent for a stat head CT which showed a subacute acute infarct in the right middle cerebral distribution affecting a fairly large portion of the right parietal lobe. The initial assessment revealed that the patient was alert but unable to speak, was very dysarthric and only able to say her name which progressed to being completely mute. She had new onset of left facial droop and left upper and lower extremity paralysis. Reviewing nurse's notes, she was last normal at 1947. No changes documented from the assessment and then reassessment at 0800 revealed that she had left-sided weakness, was only able to say her name. Given the acute subacute infarct and last known normal being at 4 a.m. her DVT prophylaxis consisted of heparin, her end-stage renal disease requiring hemodialysis were contraindications for receiving tPA. She was given a stat 325 mg of aspirin, sent for a stat MRI MRA of the brain, and EKG which revealed normal sinus rhythm. Once at the bedside assessment was performed alongside Dr. Morris. Will transfer to the ICU for frequent hourly neuro checks. The family was updated by myself and Dr. Morris. According to the family she has had 2 strokes before back in 2008 and that she has not been taking aspirin. She has been on a statin. PHYSICAL EXAMINATION: Vital Signs: Temperature 98.0 degrees, heart rate 71, respiratory rate 19, blood pressure 131/60, O2 saturation 100% on 5 L nasal cannula. General: Ms. Sujata Martinez is a 57-year-old female who is in no acute distress but is completely mute since diagnosis of acute on subacute right parietal infarct. Neuro assessment: Pupils are equal, reactive. She has a left-sided neglect. She has had paralysis of the left upper extremity and the left lower extremity which is also a yrayv-ydy-hrhe amputation. She has full range of motion of the right upper and right lower extremity which is all an above the knee amputation. No sensation on the left. She could follow some simple commands such as close her eyes and keep them closed. She would not stick out her tongue. She could not give thumbs up so obvious signs of global aphasia. She could track with her eyes but only from middle to right side. There was no eye guarding to threat on the left side. Cardiovascular: S1, S2. Regular rate and rhythm. No rubs, gallops, murmurs. Pulmonary: Coarse throughout, decreased in the bases. Currently on 5 L nasal cannula. No accessory muscle use or work of breathing noted. GI: Soft, nontender, nondistended. Positive bowel sounds x4. Extremities: Right above the knee amputation with full range of motion. Left jnkkq-[id number]-aqtx amputation with paralysis. 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 Left upper extremity with paralysis. She had +2 bilateral radial pulses and a positive bruit and thrill at the left upper arm AV graft. Skin: Warm, dry, intact. LABORATORY DATA: White blood cells 7000, hemoglobin 10, hematocrit 32, platelet count 168,000. Sodium 135, potassium 4.1, BUN 122, creatinine 7.4, glucose 194. IMAGING: Stat head CT revealed encephalomalacia in the right cerebellar hemisphere, the left frontal lobe and there are patchy areas of lucency throughout the white matter in the frontal lobes with multiple lacunar infarcts in the basal ganglia bilaterally. There is evidence of subacute ischemia in the right parietal convexity which is new from the last head CT that was on 12/01/2016. So impression revealed subacute to an acute infarct of the right middle cerebral distribution affecting a fairly large portion of the right parietal lobe. Brain MRI showed extensive chronic ischemic change of both posterior cerebral hemispheres and in the right cerebellar hemisphere, acute ischemia in the right parietal lobe and a small acute lacunar infarct in the right cerebellar hemisphere. Brain MRA, stenosis in both posterior cerebral arteries, the sylvian branches of the middle cerebral arteries and the right anterior cerebral artery. EKG normal sinus rhythm, rate is 76, QTc is 465. ASSESSMENT/PLAN: 1. Acute right parietal lobe ischemia and a small acute lacunar infarct of the right cerebellar hemisphere with a history of 2 CVAs in 2008. Aspirin 325 mg p.o. given x1. Will do daily aspirin, continue statin nightly. Will have q.1 hour neuro checks. Neurology is on board. Will not be able to give IV fluids secondary to risk of fluid volume overload. We will allow for permissive hypertension to allow for improved cerebral perfusion. We will check carotid Dopplers. Echocardiogram has been already performed. 2. Right lower lobe pneumonia. Continue ceftriaxone and azithromycin. Continue with oxygen supplementation and respiratory treatments. There is rhonchi upon auscultation. 3. Likely acute coronary syndrome. It appears that she had a non ST elevated VT. Cardiology is following. Will be treating medically without intervention and continue with aspirin and statin. 4. End-stage renal disease. Continue with hemodialysis. 5. Diabetes mellitus type 2. Pattern blood glucoses and sliding scale insulin. 6. Coronary artery disease history with elevated troponins. See #3. 7. Hypertension. Continue with antihypertensive but allow for permissive hypertension. 8. Severe peripheral vascular disease. No changes. She is status post bilateral amputation lower extremity amputations. 9. GERD. Continue proton pump inhibitor. 10. DVT prophylaxis. Continue with subcu heparin q.12 hours. 11. Tobacco abuse. Will continue with tobacco cessation education. 12. Anemia, chronic. Receives Epogen with dialysis. Critical care time performed was 50 minutes. Patient was seen and examined by me personally. I was paged by nurse regarding acute changes in mental status. Imaging was ordered stat which basically showed new stroke. Neurology was also consulted stat. Help greatly appreciated. Not a candidate for tPA for his current medical condition. She will be transferred to ICU for better monitoring. New left hemiplegia noted in physical examination , not present in previous day. Dictated by CORINA Segura for Ru Limon MD cc: CORINA Segura MD [facility]
--- NOTE | 2017-06-03 15:29 | PROGRESS NOTE ---
DATE: 06/03/2017 SUBJECTIVE: The patient currently resting in bed. Her eyes are open. She does not verbalize, does not follow commands. OBJECTIVE: Vital Signs: Temperature 98.6 degrees, pulse 72, respiratory rate 14, blood pressure 140/57. Intake 270 mL, output 2.2 L. PHYSICAL EXAMINATION: General: This is a middle-aged female, in no acute distress. She is awake, makes eye contact. Does not attempt to speak. HEENT: Normocephalic, atraumatic. ERENDIRA, conjunctivae are pale. Cardiovascular: Reveals regular rate and rhythm. No murmur or gallop. Pulmonary: She has decreased breath sounds bilaterally. She has rhonchi noted. She is on O2 supplementation via nasal cannula. Abdomen: Soft, positive bowel sounds. Genitourinary: Not inspected. She has minimal void. Hemodialysis assist. Extremities: Right AKA , left BKA noted. No edema. Does not move extremities. Integument: Skin is warm and dry. No rash or lesion. LABORATORY DATA: WBC of 7.9, hemoglobin 10.7, hematocrit 32.6 and platelet count 160,000. Sodium 135, potassium 4.1, CO2 19, BUN 122, creatinine 7.4, calcium 9.0. ASSESSMENT AND PLAN: 1. End-stage renal disease management. Today is her routine dialysis today. Dialysis held, secondary to neurologic changes. 2. Neurologic changes. See orders from Dr. Perry. 3. Right lower lobe pneumonia, hypoxia. O2 supplementation has improved with treatment. Continue current antibiotic therapy. 4. Electrolytes, acid-base balance acceptable. 5. Elevated BUN. This is much higher than normal, even with treatment yesterday. Question of vascular access flow. Left sided neglect. Stat CT with large right parietal infarct. Discussed directly with Dr. Montejo who will assume care related to her stroke. rg Dictated by CORINA Chong for Reggie Perry MD Patient seen, data reviewed, discussed with Eliseo Ferrer on 06/03/17. I agree with the above assessment and plan of care. rg cc: Reggie Perry MD [facility]
[2017-06-03] MEDS: ROCEPHIN 1 GM/NS 1 GM/50 ML IVPB IV SCH (16:51)
[2017-06-03] MEDS: ZITHROMAX 500 MG/NS 500 MG/250 ML IVPB IV SCH (16:51)
--- NOTE | 2017-06-03 17:11 | CONSULTATION ---
DATE OF CONSULTATION: 06/03/2017 REASON FOR CONSULTATION: The patient is seen in consultation at the request of Dr. Ramirez for evaluation of stroke. HISTORY OF PRESENT ILLNESS: A 57-year-old, left-handed, female with multiple comorbidities who has been hospitalized on 05/31/2017 and being treated for acute coronary syndrome, pneumonia and getting hemodialysis. Her last known normal was at 1947 hours yesterday, per nursing notes. Reassessment at 8 a.m. revealed that she had left-sided weakness and was only able to say her name. Head CT stat was obtained followed by MRI and MRA. She was given aspirin and I was consulted for evaluation. Per the family's report she had 2 strokes in 2008. They believe one of them also involved her left side. Blood pressures have been relatively stable throughout her hospitalization ranging from the 110s to 150s over 40s to 80s. No major hypotensive events. REVIEW OF SYSTEMS: Unobtainable due to patient being unable to speak at this time. PAST MEDICAL HISTORY: Chronic heart failure, poorly controlled diabetes, end- stage renal disease on hemodialysis, significant coronary disease apparently being non-amenable to bypass or PCI, hypertension, severe peripheral vascular disease, bilateral lower extremity amputations, diabetic neuropathy, dyslipidemia, history of strokes x2 in 2008. PAST SURGICAL HISTORY: Left AV graft and bilateral lower extremity amputations. SOCIAL HISTORY: Apparently she is still smoking. No alcohol or drugs. FAMILY HISTORY: Positive for diabetes, hypertension and coronary disease. ALLERGIES: No known drug allergies. MEDICATIONS: Reviewed in the chart. She has received aspirin full dose and schedule to start low- dose aspirin in the morning. She is on Lipitor 40, Norvasc, Coreg and Apresoline as well as Imdur. PHYSICAL EXAMINATION: Vital Signs: Afebrile. Blood pressure currently 148/70 , pulse 74, respirations 16. General: This is an female lying in bed. Family is at bedside. Neck: Supple. Trachea midline. HEENT: Unremarkable. Cardiovascular: Regular rate. Intact pulses as tested. No significant edema. Lungs: No increased work of breathing. Normal chest rise and expansion. No audible wheezes. Abdomen: Soft, nontender. Extremities: She has amputations about the knees bilaterally. Skin: Warm, dry, and intact. Neurologic: Mental status: She is awake and alert. She regards more from the right. Possibly neglecting the left. At one point, she seems to say "okay" but otherwise is nonverbal. Expressive aphasia +/- receptive- She follows some commands although not all. Cranial nerves: Pupils 3.5 mm OU reactive. Conjugate gaze. Eye movements are full horizontally with passive head turning, left lower facial droop. Unable to protrude her tongue on command. Motor: She is at least against gravity in the right arm and right leg. There is no movement with the left arm and left leg and no response to sensory stimulation on the left as well. Reflexes diminished at the wrists bilaterally, 1 to 2+ right biceps, reduced left biceps and triceps. No definite incoordination with limited testing. DIAGNOSTICS: Head CT was personally reviewed. There does appear to be an acute or subacute infarct of the right MCA distribution in the parietal lobe. MRI and MRA of the brain was personally reviewed. She does have restricted diffusion seen extensively in the right hemisphere and a tiny area within the right cerebellar hemisphere. Extensive chronic ischemic changes were noted as well. The MRA showed stenoses in the ada accommodation consultant, the MCAs and the right ERVIN. Echocardiogram on 06/01 was reviewed. EKG shows normal sinus rhythm. LABORATORY DATA: Lab work was reviewed in the chart. BUN 122, creatinine 7.4, liver function tests were elevated. BNP greater than 35,000. Troponins had been elevated. ASSESSMENT AND PLAN: A 57-year-old, LEFT handed female with multiple medical comorbidities and prior strokes admitted recently and being treated for acute coronary syndrome and pneumonia now with acute ischemic stroke. Left facial droop and hemiparesis with at least an expressive aphasia. Question of left neglect. The patient is not a candidate for tPA given that the last known normal was well beyond the limits of this. Risk factor modification is important here. Improved control of diabetes. High potency statin such as Lipitor 40. Agree with permissive hypertension for the next few days given the acute stroke provided she is able to tolerate this from a cardiac standpoint, however. Agree with low-dose aspirin daily. Consider repeat TTE. Unfortunately this patient has multiple serious comorbidities and severe vascular disease diffusely it seems. Her prognosis is guarded. Continue frequent neuro checks at least for the next 24 hours. Thank you for this consultation. We will follow. cc: Miladys Cedeno MD [facility]
[2017-06-03 18:51] LABS: PROTIME 10.5 Seconds (9.2-11.7)
[2017-06-03] MEDS ORDERED: APRESOLINE IV PRN (20:23)
[2017-06-03] MEDS: NEXIUM IV SCH (21:16)
[2017-06-03] MEDS: LEVEMIR SUBQ SCH (21:17)
--- NOTE | 2017-06-03 22:43 | Carotid Study ---
DATE: 06/03/2017 PROCEDURE: Carotid duplex imaging. REFERRING PHYSICIAN: Dr. Ramirez INTERPRETING PHYSICIAN: Dr. Paniagua TECH: Kana INDICATIONS: Stroke. OBSERVED DATA RIGHT LEFT Brachial Blood Pressure Carotid Pulse Bruits: Carotid/Sub DIAGRAM OF ULTRASOUND IMAGING R L RIGHT INT EXT INT EXT LEFT Naldo (cm/s) Naldo (cm/s) Subclavian 88/0 Subclavian 140/30 CCA Proximal 53/0 CCA Proximal 87/11 CCA Distal 48/7 CCA Distal 80/8 Bulb 45/3 Bulb 46/8 ICA Proximal 65/9 ICA Proximal 87/23 ICA Mid 58/5 ICA Mid 104/19 ICA Distal 29/8 ICA Distal 95/19 ECA 202/0 ECA 77/11 Vertebral 23/0 Vertebral 36/9 ICA/CCA Ratio 1.2 ICA/CCA Ratio 1.2 % Stenosis 0-39% % Stenosis 0-39% FINDINGS: There is calcific atherosclerosis throughout both carotid systems but no ulcerative plaques or hemodynamically significant lesions are present. cc: MD Claudette Brantley CRNP
[2017-06-04] MEDS: HUMALOG SUBQ SCH ×4 (06:26→20:14)
[2017-06-04 06:34] LABS: MANUAL DIFF NEEDED? NO
[2017-06-04 06:44] LABS: BASO% 0.7 % (0.0-0.8); EOS# 0.13 X1000 (0.0-0.7); EOS% 1.8 % (0.0-10.0); HEMATOCRIT 36.8 % (37.0-47.0); HEMOGLOBIN 11.9 g/dL (12.0-16.0); IMM GRAN# 0.03 X1000 (0.0-0.04); IMM GRAN% 0.4 % (0.0-0.5); LYMPH# 0.99 X1000 (1.2-3.4); LYMPH% 13.7 % (20.5-51.1); MCH 32.5 PG (27-31); MCHC 32.3 g/dL (33-37); MCV 100.5 FL (81-99); MONO# 0.59 X1000 (0.11-0.59); MONO% 8.2 % (1.7-9.3); MPV 11.7 FL (7.4-10.4); NEUT% 75.2 % (42.2-75.2); PLT 245 X1000 (130-400); RBC 3.66 XMIL (4.2-5.4)
[2017-06-04 07:04] LABS: ALBUMIN 4.2 g/dL (3.5-5.0); CALCIUM 9.8 mg/dL (8.8-10.2); POTASSIUM 4.4 mmol/L (3.5-5.1); TOTAL BILIRUBIN 0.33 mg/dL (0.20-1.00); TOTAL PROTEIN 7.8 g/dL (6.3-8.3)
[2017-06-04] MEDS ORDERED: NS 2,000 ML MISC PRN (08:21)
[2017-06-04] MEDS: HEPARIN SUBQ SCH ×2 (08:22→20:13)
[2017-06-04] MEDS ORDERED: HEPARIN ONE (08:25)
[2017-06-04] MEDS ORDERED: NS 2,000 ML ONE (08:25)
[2017-06-04] MEDS ORDERED: ASPIRIN PO SCH (09:00)
--- NOTE | 2017-06-04 12:39 | Diag Imaging Result Doc PS360 ---
EXAM: CT HEAD W/O CONTRAST HISTORY: worsening stroke symptoms TECHNIQUE: CT of the head without contrast with dose reduction (clarity.) COMMENT: There are calcifications in the vertebral and internal carotid arteries. There is some increase in the degree of hypodensity in the infarct in the right parietal and temporal lobe. There is no appreciable mass effect. There are chronic encephalomalacic changes in the left frontal lobe with abnormal lucencies in lacunar infarcts similar in appearance to the previous examination of 06/03/2017. There is no evidence of bleed or abnormal extra-axial fluid collection. IMPRESSION: Evolving right middle cerebral artery infarct. Electronically signed by Olman Mcelroy 06/04/2017 12:37 PM
--- NOTE | 2017-06-04 12:39 | Diag Imaging Result Doc PS360 ---
EXAM: CT THORAX W/O CONTRAST HISTORY: aspiration pna TECHNIQUE: CT chest without contrast. Dose reduction protocol. COMPARISON: 03/22/2015 FINDINGS: No pleural effusions. Heart is mildly enlarged. Prominent coronary artery calcifications. No thoracic aortic aneurysm. There are small calcified mediastinal nodes. There are faint bilateral infiltrates most pronounced in the upper lobes. Small area of increased density in the left base may be scarring. No pericardial effusion. Limited images through the upper abdomen reveal severe atherosclerosis. IMPRESSION: 1.Bilateral faint infiltrates most pronounced in the upper lobes 2.Severe atherosclerosis 3.No pericardial effusion or pleural effusions on the current exam Electronically signed by Valdo Corley 06/04/2017 12:37 PM
--- NOTE | 2017-06-04 12:46 | PROGRESS NOTE ---
DATE: 06/04/2017 SUBJECTIVE: The patient can talk this morning and according to my previous evaluation from yesterday she is the same. She developed acute stroke in the right middle cerebral artery distribution. According to nursing staff, there were no new neurological changes. OBJECTIVE: Vital Signs: Temperature 98.8 degrees, heart rate 82, respiratory rate 18, blood pressure 167/70, O2 saturation 97% on room air. General: This is a 57-year-old female lying in bed, in no acute distress. HEENT: Head is normocephalic, atraumatic. Anicteric sclerae and pale conjunctivae. Mucous membranes moist. Neck: Supple. No JVD noted. No carotid bruits. No lymphadenopathy. Cardiovascular: S1, S2 heard. No murmurs, gallops, or rubs. Regular rate and rhythm. Respiratory: Clear bilaterally to auscultation. No work of breathing or using accessory muscles. Abdomen: Soft. Nontender to palpation. Bowel sounds present. No organomegaly. Extremities: No clubbing, cyanosis, or edema. Peripheral pulses present in both legs. Neurological: Patient has a bilateral knee amputation. She has expressive aphasia. She follows all. Pupils are round and reactive to light and accommodation. Also the left leg and arm there is hemiplegia noted. LABORATORY DATA: White cell count 11.21 hemoglobin 11.9 hematocrit 36.8, platelets 245,000. BUN 124 and creatinine 7.2. ASSESSMENT AND PLAN: 1. Acute ischemic stroke with left facial droop and hemiparesis. The patient has been evaluated by neurology and she was not a candidate for tPA at the time that we noted this stroke happened. Recommendations are improving risk factors for stroke, like diabetes. She was started on Lipitor 40. She is on permissive hypertension for the next few days. From yesterday to today there were no new neurological changes. Carotid Dopplers have been ordered but not resulted yet. 2. Right lower lobe pneumonia. Patient is on ceftriaxone and azithromycin. We will continue with the same management. 3. Small [id number]-[id number]-rpssbwugk myocardial infarction. Cardiology is following this patient. 4. End-stage renal disease, on dialysis. Dr. Perry is following this patient. 5. Diabetes mellitus type 2. Patient is on sliding scale insulin. 6. Coronary artery disease. Cardiology is following for this reason, non-STEMI. 7. Hypertension. We have held most blood pressure medications to allow permissive hypertension stroke. 8. Severe peripheral vascular disease. Patient had a bilateral farvq-dbp-cyqf amputation. 9. Gastroesophageal reflux disease. We will continue with PPI. 10. Tobacco abuse. Will continue advising this patient to stop smoking. cc: Ru Limon MD
[2017-06-04 13:17] LABS: I-STAT BE 2 mmoll (-2-3); I-STAT GLUCOSE 234 mg/dL (70-105); I-STAT HCO3 26.1 mmoll (22.0-26.0); I-STAT HEMATOCRIT 40 % (38-51); I-STAT HEMOGLOBIN 13.6 g/dL (11.5-17.5); I-STAT IONIZED CALCIUM 1.08 mmoll (1.12-1.32); I-STAT PCO2 35.7 mmHg (35.0-45.0); I-STAT SO2 99 % (95-98); I-STAT SODIUM 138 mmoll (138-146); I-STAT TCO2 27 mmoll (23-27); I-STAT pH 7.472 (7.350-7.450)
[2017-06-04] MEDS ORDERED: VIMPAT IV SCH (13:45)
--- NOTE | 2017-06-04 14:06 | CONSULTATION ---
DATE OF CONSULTATION: 06/04/2017 Ms. Martinez had some behavior during dialysis raising question of seizure and postictal state. She is not able to provide history herself at this time. She had previous imaging evidence of evolving right MCA territory infarction with clinical finding of left hemiplegia. During dialysis , she reportedly became agitated and then unresponsive and then had fixed left gaze with unresponsiveness. That has resolved. Dr. Geller saw her for initial Neurology evaluation yesterday. She has multiple comorbidities. She had a repeat CT scan today showing evidence of evolving right MCA territory infarction but nothing new and no evidence of bleeding. Her lab work showed mildly elevated blood sugars which are near baseline. Her BUN and creatinine levels are elevated a little beyond recent baseline. Medicines include azithromycin, ceftriaxone. She had tramadol several days ago. Her systolic blood pressures have been stable 130s to 160s. Heart rate has been stable 70s to 90s. On exam, she appears to be sleeping but can be aroused and looks at me. She did not follow commands. She did move her right arm purposefully. She did not move her left arm. Left arm remains flaccid. She moved her eyes to the left and to the right but may have slight right gaze preference still. IMPRESSION: Is that she has subacute nondominant right hemisphere infarction with left hemiplegia and recent episode consistent with focal seizure followed by postictal state and that seems to be resolving. Seizure seems likely related to the recent infarction. She does have some metabolic abnormalities but nothing that generally would be associated with seizure or major change in encephalopathy. In light of her major medical problems and likely focal seizure, I think it would be prudent to start her on medicine to control seizures. One of her daughters has great familiarity with seizure medicines based on her management of another family member. We discussed phenytoin, divalproex, levetiracetam and lacosamide at some length. We will start with Vimpat and be careful with dose in light of her renal function.. Further plans will depend on her clinical course. I will order EEG to be done electively. Thank for allowing Neurology to follow Ms. Martinez. cc: MD ARIC Villegas III
[2017-06-04] MEDS: NS IV SCH (14:16)
[2017-06-04] MEDS: VIMPAT IV SCH (14:16)
--- NOTE | 2017-06-04 14:29 | PROGRESS NOTE ---
DATE: 06/04/2017 SUBJECTIVE: She looks at me and moves her right hand, but minimally. OBJECTIVE: Vital Signs: Blood pressure 131/87, heart rate 96, respiration 18, afebrile. General: She is in no acute distress. Skin: Warm and dry. Eyes: Conjunctivae are pink. Neck: Neck veins are distended. Trachea is midline. Heart: Regular with S4. Lungs: Have equal breath sounds. Shallow. No crackles. Abdomen: Soft, nontender. Bowel sounds are present. Extremities: Have no edema, clubbing, or cyanosis. LABORATORY DATA: Sodium 141, potassium 4.4, chloride 96, bicarbonate 21, BUN 124, creatinine 7.2. IMPRESSION: 1. End-stage kidney disease. Her dialysis was deferred from yesterday because of her acute stroke. Plan for dialysis today, but if she has any instability, then her treatment will be cut short. I was contacted by the dialysis staff after 2-1/2 hours of treatment stating that she was more unresponsive and teeth were clenched. We opted to take her off dialysis at that point. 2. Electrolytes/acid base in target. 3. Anemia is in target on erythropoietin. 4. Acute stroke. Appreciate the support of the team. cc: Reggie Perry MD
--- NOTE | 2017-06-04 16:42 | PROGRESS NOTE ---
DATE: 06/04/2017 SUBJECTIVE: Events in last 48 hours noted with patient suffering cerebrovascular accident yesterday. When I see her she arouses and looks to me but does not speak. She does not indicated that she understands what I am saying in that she does not give me any nonverbal response to inquiries. OBJECTIVE: Vital Signs: Blood pressure 129/73, heart rate 93 and regular. Neck: There is no significant jugular venous distention. Chest: Is clear to auscultation. Cardiac exam: A regular rate and rhythm without appreciable murmur or gallop. There is no evidence of edema. LABORATORY DATA: Includes hematocrit of 36.8, potassium 4.4, BUN 124, creatinine 7.2. IMPRESSION.: 1. Right middle cerebral artery cerebrovascular accident. 2. Recent mildly elevated troponin consistent with small non ST elevation myocardial infarction probably provoked by congestive heart failure/volume overload in the setting of severe multivessel coronary atherosclerosis. 3. Acute on chronic systolic/diastolic heart failure, improved. 4. Severe diffuse multivessel coronary atherosclerosis. 5. End-stage renal disease requiring chronic hemodialysis. 6. Diabetes mellitus. 7. Hypertension. 8. Previous cerebrovascular accident. 9. Hyperlipidemia. 10. Chronic cigarette use, ongoing. RECOMMENDATIONS: 1. Continue current medical regimen as is. 2. Conservative/medical therapy for coronary disease overall in light of diffuse nature of patient's coronary atherosclerosis and severe comorbidities. 3. We will see her further on an as needed basis. cc: Henrry Chang MD
[2017-06-04] MEDS: ROCEPHIN 1 GM/NS 1 GM/50 ML IVPB IV SCH (17:00)
[2017-06-04] MEDS: ZITHROMAX 500 MG/NS 500 MG/250 ML IVPB IV SCH (17:01)
--- NOTE | 2017-06-04 18:47 | EEG REPORT ---
DATE: 06/04/2017 COMMENT: This is a digitally recorded EEG done portably in the ICU on a 57-year-old patient with large left hemisphere infarction, recent probable focal seizure. FINDINGS: The dominant rhythm is theta at 6-7 hertz occurring across both hemispheres, better sustained on the left. There is slowing into the delta range bilaterally. There is occasional sharp wave discharge with phase reversal at the F4 electrode but no definite electrographic seizure was recorded. Photic stimulation did not alter the record. INTERPRETATION: Abnormal EEG because of generalized slowing, slightly more prominent slowing over the right hemisphere and right hemisphere epileptiform discharge. CORRELATION: The first finding is indicative of a global encephalopathy and is nonspecific. The second finding indicates more focal disturbance of electric cortical activity in the right hemisphere, consistent with the known recent infarction. The last finding would correlate with clinical seizures and is consistent with the clinically suspected right hemisphere focus. cc: Temi Constantino III, MD
[2017-06-04] MEDS: NEXIUM IV SCH (20:13)
[2017-06-04] MEDS: LEVEMIR SUBQ SCH (20:17)
[2017-06-05] MEDS: NS IV SCH ×2 (01:36→15:15)
[2017-06-05] MEDS: VIMPAT IV SCH ×2 (01:36→15:15)
[2017-06-05] MEDS: HUMALOG SUBQ SCH ×4 (06:10→20:16)
[2017-06-05] MEDS ORDERED: HEPARIN IV PRN (07:22)
[2017-06-05] MEDS ORDERED: NS 2,000 ML MISC PRN (07:22)
[2017-06-05] MEDS ORDERED: TIGHT: 0.2 ML/HR MISC PRN (07:22)
[2017-06-05] MEDS ORDERED: NS 2,000 ML ONE (08:16)
--- NOTE | 2017-06-05 08:41 | PROGRESS NOTE ---
DATE: 06/05/2017 SUBJECTIVE: She is awake and alert, attempts to verbalize. OBJECTIVE: Vital Signs: Blood pressure 126/73, heart rate 84, respirations 9, afebrile. General: No acute distress. Skin: Warm and dry. HEENT: Conjunctivae are pink. Pupils are equal. Neck: The neck veins are not visible. Heart: Regular with a murmur and a gallop. Lungs: Have equal breath sounds. No crackles or wheezes. Abdomen: Soft, nontender. Bowel sounds are present. Extremities: Have no edema, clubbing, or cyanosis. Neurologic: Still neglectful of the left side. LABORATORY DATA: Pending. IMPRESSION AND PLAN: 1. End-stage kidney disease. She was incompletely dialyzed yesterday because of her apparent seizure activity. We will dialyze her again today. Appreciate Dr. Constantino's input on her case. 2. Electrolytes/acid base/anemia. No new data. 3. Hypertension, in target. cc: Reggie Perry MD
[2017-06-05] MEDS: ZOSYN 2.25 GM in NS 50 ML IV SCH ×3 (09:22→19:53)
[2017-06-05] MEDS: ASPIRIN PR SCH (09:22)
[2017-06-05] MEDS: HEPARIN SUBQ SCH ×2 (09:22→20:15)
--- NOTE | 2017-06-05 10:27 | PROGRESS NOTE ---
DATE: 06/05/2017 OBJECTIVE: Ms. Martinez is more alert, following some very simple commands but still inconsistent with that. She moved her right arm purposely and consistently. She did not move her left arm. She has full lateral eye movement spontaneously and with passive head turning. She was not attentive to visual field counting. ASSESSMENT AND PLAN: I do not see evidence of new infarction, extension of infarction, new TOOL SMITH event. I believe that she had a seizure related to her recent nondominant right hemisphere infarction, and she has started Vimpat. We will follow closely clinically with Vimpat on board and consider checking lacosamide serum level if needed. No new suggestion today. Thanks for asking me to see Ms. Martinez. cc: Temi Constantino III, MD
--- NOTE | 2017-06-05 10:57 | PROGRESS NOTE ---
DATE: 06/05/2017 SUBJECTIVE: The patient yesterday after was about to finish dialysis, when she had apparently worsening change in mental status. The patient had a CT of the head that shows evolving right middle cerebral artery infarct. Also, CT of the chest shows aspiration pneumonia. Patient is now doing fine. Definitely alert, awake. Does follow basic commands. No acute issues as per nursing overnight. OBJECTIVE: Vital Signs: Temperature 97.3, heart rate 84, respiratory rate 14. Blood pressure 126/73, O2 saturation 100% on 2 L nasal cannula. General Examination: This is a chronically ill- appearing, 57-year-old, female lying in bed, in no acute distress. HEENT: Head is normocephalic, atraumatic. Anicteric sclerae and pale conjunctivae. Neck: Supple. No JVD noted. No carotid bruits. No lymphadenopathy. Cardiovascular: S1, S2 heard. No murmurs, gallops, or rubs. Regular rate and rhythm. Respiratory: Clear bilaterally to auscultation. No work of breathing or using accessory muscles. Abdomen: Soft, nontender to palpation. Bowel sounds present. No organomegaly. Extremities: No clubbing, cyanosis, or edema. Bilateral above- the-knee amputation. Neurological: Patient has expressive aphasia. There is a left hemiplegia noted. Pupils round, reactive to light and accommodation. Does follow basic commands. LABORATORY DATA: There are no labs from today. ASSESSMENT AND PLAN: 1. Acute ischemic stroke with left hemiplegia. The patient is doing fine. Apparently, she had a worsening stroke, but evaluated by Dr. Constantino. He thinks that this patient may have had a seizure. EEG confirmed that she had seizures, so she was started on Vimpat and since then she has not had any seizure. Carotid Doppler has been ordered, but not resulted yet. The patient's blood pressure medications have been held to allow permissive hypertension. Blood pressure is still relatively low, 120 systolic blood pressure. We will continue with the same management. 2. Right lower lobe pneumonia. Patient was on ceftriaxone and azithromycin, but CT of the chest that we did to rule out any aspiration pneumonia is showed that preferred to switch to Zosyn, renally dosed. 3. Small non ST-segment elevation myocardial infarction. Cardiology is following this patient. Patient is stable from their standpoint, they are going to follow on an as needed basis. 4. End-stage renal disease on dialysis. Dr. Perry has planned to resume dialysis today. 5. Diabetes mellitus type 2. Patient is on sliding scale insulin. We will continue with the same management. 6. Coronary artery disease. As we mentioned above. 7. Hypertension. Blood pressure is 120s without any blood pressure medication. Ideally, we would like to have a high blood pressure, but the fact that this patient is on dialysis. I do not think if we do IV fluids, that is going to help. We will continue watching this patient closely. 8. Severe peripheral vascular disease. The patient had bilateral [id number] amputation. 9. Gastroesophageal reflux disease. We will continue with proton pump inhibitor. 10. Tobacco abuse. We will advise patient to stop smoking when she is more stable. CRITICAL CARE TIME: 50 minutes. cc: Ru Limon MD
[2017-06-05] MEDS: EPOGEN SUBQ SCH (11:11)
[2017-06-05] MEDS: NEXIUM IV SCH (19:54)
[2017-06-05] MEDS: LEVEMIR SUBQ SCH (20:16)
[2017-06-06] MEDS: NS IV SCH ×2 (01:30→15:17)
[2017-06-06] MEDS: ZOSYN 2.25 GM in NS 50 ML IV SCH ×4 (01:30→23:00)
[2017-06-06] MEDS: VIMPAT IV SCH ×2 (01:30→15:17)
[2017-06-06] MEDS: HUMALOG SUBQ SCH ×5 (06:08→23:13)
[2017-06-06] MEDS: ASPIRIN PR SCH (08:29)
[2017-06-06] MEDS: HEPARIN SUBQ SCH ×2 (08:31→23:01)
--- NOTE | 2017-06-06 10:01 | PROGRESS NOTE ---
DATE: 06/06/2017 SUBJECTIVE: Patient is feeling okay. As per nursing staff, no more episodes of seizures. No fever or chills reported. Patient able to eat with assistance. OBJECTIVE: Vital Signs: Temperature 97.2 degrees, heart rate 81, blood pressure 162/66, O2 95% on 2 L nasal cannula. General: On examination this is a chronically ill-appearing and frail, 57- year-old, female, lying in bed in no acute distress. HEENT: Head is normocephalic, atraumatic. Anicteric sclerae and pale conjunctivae. Mucous membranes moist. Pupils equal, round, and reactive to light and accommodation. Neck: Supple. No JVD noted. No carotid bruits. No lymphadenopathy. Cardiovascular exam: S1, S2 heard. No murmurs, gallops, or rubs. Regular rate and rhythm. Respiratory exam: Clear bilaterally to auscultation. No work of breathing or using accessory muscles. Abdomen: Soft, nontender to palpation. Bowel sounds present. No organomegaly. Extremities: Bilateral [id number]-glt-[id number] amputation. Neurological exam: Patient with expressive aphasia, unchanged from 2 days ago. Left hemiplegia noted. Able to follow basic commands. LABORATORY DATA: No labs from today. ASSESSMENT AND PLAN: 1. Acute ischemic stroke with left hemiplegia and secondary seizures. Because of suspicion for worsening stroke, yesterday morning she was seen by Dr. Constantino. He thinks that this could be a seizure secondary to this new stroke the patient just got. Dr. Constantino started this patient on Vimpat intravenous and, since then, no more seizure reported. The blood pressure medication has been held to allow permissive hypertension. Blood pressure is running in the range of 150 to 160. We will continue with the same management. 2. Right lower lobe pneumonia, aspiration pneumonia. As we mentioned yesterday, CT of the chest shows infiltrates in both upper lobes suspicious for aspiration pneumonia. So, patient was started on Zosyn. White cell count is normal. She is not spiking any fever. Oxygen needs are basically the same. 3. Small non-ST elevation myocardial infarction. Cardiology was following this patient, but they have signed off. No chest pain reported. 4. End-stage renal disease on dialysis. The patient had dialysis yesterday. Dr. Perry from nephrology is following this patient. 5. Diabetes mellitus type 2. Patient is on sliding scale insulin. We will continue with same management. 6. Coronary artery disease. As we mentioned above. 7. Hypertension. Blood pressure is 160. She has not been given any blood pressure medication because of this permissive hypertension just after stroke. We plan to resume blood pressure medications this Thursday. 8. Severe peripheral vascular disease. Patient had bilateral [id number]-[id number] amputation. 9. Gastroesophageal reflux disease. We will continue with proton pump inhibitor. 10. Tobacco abuse. Patient advised to stop smoking which is a big factor for developing strokes and heart attacks. DISPOSITION: The patient is going to be transferred out of the unit today and she may need to go to rehab after she is more stable. cc: Ru Limon MD
--- NOTE | 2017-06-06 13:08 | PROGRESS NOTE ---
DATE: 06/06/2017 SUBJECTIVE: She is spontaneously awake and alert, but she is nonverbal with me. Staff states that she has been able to eat solids and liquids and has been able to answer yes and no. OBJECTIVE: Vital Signs: Blood pressure 154/57, heart rate 86, respiration 18, afebrile. Generally, she is in no acute distress. Skin is warm and dry. Conjunctivae are pink. Neck veins are not visible. Heart is regular with a gallop and a murmur. Lungs have equal breath sounds. No crackles or wheezes. Abdomen is soft and nontender. Bowel sounds are present. Extremities have no edema, clubbing, or cyanosis. LABORATORY DATA: None today. IMPRESSION: 1. End-stage kidney disease. She has been dialyzed for short treatments for the last 2 days. No treatment today planned. We will recheck labs today however. 2. Seizures with dialysis. This is being managed by Dr. Constantino. 3. Anemia. Continue erythropoietin. 4. Hypertension, acceptable. cc: Rgegie Perry MD
[2017-06-06] MEDS ORDERED: NS 500 ML IV SCH (19:27)
[2017-06-06 19:52] LABS: HEMATOCRIT 37.6 % (37.0-47.0); MCH 32.6 PG (27-31); MCHC 31.9 g/dL (33-37); MCV 102.2 FL (81-99); MPV 11.6 FL (7.4-10.4); RBC 3.68 XMIL (4.2-5.4)
[2017-06-06 20:26] LABS: CALCIUM 9.3 mg/dL (8.8-10.2); POTASSIUM 4.3 mmol/L (3.5-5.1)
[2017-06-06] MEDS: NEXIUM IV SCH (23:00)
[2017-06-06] MEDS: LEVEMIR SUBQ SCH ×2 (23:01→23:10)
[2017-06-06] MEDS: SODIUM CHLORIDE 0.9% INJ SCH (23:13)
[2017-06-07] MEDS: NS IV SCH ×2 (02:10→15:22)
[2017-06-07] MEDS: VIMPAT IV SCH ×2 (02:10→15:22)
[2017-06-07] MEDS: ZOSYN 2.25 GM in NS 50 ML IV SCH ×4 (03:55→23:34)
[2017-06-07 06:25] LABS: MANUAL DIFF NEEDED? NO
[2017-06-07 06:29] LABS: BASO% 0.4 % (0.0-0.8); EOS# 0.31 X1000 (0.0-0.7); EOS% 2.6 % (0.0-10.0); HEMATOCRIT 34.8 % (37.0-47.0); HEMOGLOBIN 11.2 g/dL (12.0-16.0); IMM GRAN# 0.09 X1000 (0.0-0.04); IMM GRAN% 0.8 % (0.0-0.5); LYMPH% 15.3 % (20.5-51.1); MCH 32.7 PG (27-31); MCHC 32.2 g/dL (33-37); MCV 101.5 FL (81-99); MONO# 1.05 X1000 (0.11-0.59); MONO% 8.9 % (1.7-9.3); MPV 11.5 FL (7.4-10.4); PLT 262 X1000 (130-400); RBC 3.43 XMIL (4.2-5.4)
[2017-06-07 06:57] LABS: POTASSIUM 4.4 mmol/L (3.5-5.1)
[2017-06-07] MEDS: HUMALOG SUBQ SCH ×4 (07:39→23:17)
[2017-06-07] MEDS: HEPARIN SUBQ SCH ×2 (10:02→23:11)
[2017-06-07] MEDS: ASPIRIN PR SCH (13:23)
--- NOTE | 2017-06-07 14:46 | PROGRESS NOTE ---
DATE: 06/07/2017 SUBJECTIVE: Patient is feeling fine. No more episodes of seizure reported. There are no fevers or chills. Patient is able to talk to me today with normal words. OBJECTIVE: Vital Signs: Temperature 97.6 degrees, heart rate 78, respiratory 14, blood pressure 153/63, O2 saturation 100% on 2 L nasal cannula. General Examination: This is a chronically ill- appearing and frail, 57-year-old female lying in bed, in no acute distress. HEENT: Head is normocephalic, atraumatic. Anicteric sclerae and pale conjunctivae. Neck: Supple. No JVD noted. No carotid bruits. No lymphadenopathy. Cardiovascular: S1, S2 heard. No murmurs, gallops, or rubs. Regular rate and rhythm. Respiratory: Clear bilaterally to auscultation. No work of breathing or using accessory muscles. Abdomen: Soft. Nontender to palpation. Bowel sounds present. No organomegaly. Extremities: Bilateral [id number] amputation. Neurological: Patient with expressive aphasia, although she was able to tell her name today. Left hemiplegia noted. Able to follow basic commands. LABORATORY DATA: White cell count 11.8, hemoglobin 11.2, hematocrit 34.8, platelets 262,000. BMP unremarkable except creatinine 6.8 and BUN 79 compatible with patient on dialysis. ASSESSMENT AND PLAN: 1. Acute ischemic stroke with left hemiplegia. No more neurological symptoms since this happened last Thursday. Dr. Constantino is following this patient. At this point we are going to resume blood pressure medications considering that it has been more than 72 hours that we allowed permissive hypertension. Blood pressure is 175 and 153 most of the time. 2. Seizure disorder. The patient had a seizure the next day after she had this episode of acute stroke. Patient has been started on Keppra. We will continue with the same management. 3. Right lower lobe pneumonia/aspiration pneumonia. Patient currently is on Zosyn. She is not spiking any fever. White cell count is back to normal. 4. Small non ST-segment elevation myocardial infarction, stable. Cardiology had been following this patient but they signed off. No chest pain reported. 5. End-stage renal disease, on dialysis. Patient had received dialysis the day before yesterday. We will continue following recommendations from Dr. Perry. 6. Diabetes mellitus type 2. Patient is on sliding scale insulin. We will continue with the same management. 7. Hypertension. Blood pressure is sometimes 170/80. We will continue with the same management. We are going to restart all blood pressure medications. 8. Severe peripheral vascular disease. The patient had bilateral [id number] amputation. 9. Gastroesophageal disease. We will continue with PPI. 10. Tobacco abuse. Patient will be advised to stop smoking. 11. Disposition. This patient is medically stable and can be discharged. She will need to be discharged to a rehab facility versus [facility]. cc: Ru Limon MD
[2017-06-07] MEDS: LEVEMIR SUBQ SCH (23:11)
[2017-06-07] MEDS: SODIUM CHLORIDE 0.9% INJ SCH (23:34)
[2017-06-07] MEDS: NEXIUM IV SCH (23:34)
[2017-06-08] MEDS: NS IV SCH ×2 (03:18→15:50)
[2017-06-08] MEDS: VIMPAT IV SCH ×2 (03:18→15:50)
[2017-06-08] MEDS: ZOSYN 2.25 GM in NS 50 ML IV SCH ×3 (05:04→18:39)
[2017-06-08 05:58] LABS: MANUAL DIFF NEEDED? NO
[2017-06-08 06:22] LABS: BASO% 0.3 % (0.0-0.8); EOS% 1.8 % (0.0-10.0); HEMOGLOBIN 10.6 g/dL (12.0-16.0); IMM GRAN# 0.08 X1000 (0.0-0.04); IMM GRAN% 0.7 % (0.0-0.5); LYMPH# 1.18 X1000 (1.2-3.4); LYMPH% 10.8 % (20.5-51.1); MCH 32.6 PG (27-31); MCHC 32.1 g/dL (33-37); MCV 101.5 FL (81-99); MONO# 1.03 X1000 (0.11-0.59); MONO% 9.4 % (1.7-9.3); MPV 11.5 FL (7.4-10.4); PLT 286 X1000 (130-400); RBC 3.25 XMIL (4.2-5.4)
[2017-06-08] MEDS ORDERED: TIGHT: 0.2 ML/HR MISC PRN (06:40)
[2017-06-08] MEDS ORDERED: NS 2,000 ML MISC PRN (06:40)
[2017-06-08] MEDS ORDERED: HEPARIN IV PRN (06:40)
[2017-06-08] MEDS: HUMALOG SUBQ SCH ×4 (06:49→22:51)
[2017-06-08 07:04] LABS: CALCIUM 9.2 mg/dL (8.8-10.2); POTASSIUM 4.3 mmol/L (3.5-5.1)
[2017-06-08] MEDS ORDERED: NS 2,000 ML ONE ×2 (08:06→13:09)
[2017-06-08] MEDS ORDERED: HEPARIN ONE (08:06)
--- NOTE | 2017-06-08 10:32 | PROGRESS NOTE ---
DATE: 06/08/2017 Ms. Martinez was seen during hemodialysis. She is awake and alert. She attempted some speech more briskly than when I last saw her 3 days ago. I did not examine her left arm vigorously due to dialysis in progress. However, there is report that she had brisk withdrawal of the left arm earlier today. She continues to use her right arm purposefully. There is no new neurologic deficit. IMPRESSION: Right hemisphere infarction, left hemiplegia, encouraging report of left arm withdrawal earlier. There is no evidence of new neurologic deficit. She had likely seizure a few days ago and I do not have report of any recurrent seizure. She is tolerating current Vimpat dose without clinical evidence of intoxication. We can consider checking lacosamide serum level if she becomes obtunded. No new suggestions today from a neurologic standpoint. cc: MD ARIC Villegas III
[2017-06-08] MEDS: HEPARIN SUBQ SCH ×2 (12:20→22:50)
[2017-06-08] MEDS: ASPIRIN PR SCH (12:20)
[2017-06-08] MEDS: EPOGEN SUBQ SCH (12:50)
--- NOTE | 2017-06-08 14:49 | PROGRESS NOTE ---
DATE: 06/08/2017 SUBJECTIVE: Ms. Martinez is resting quietly in bed. She is on hemodialysis. She does not make eye contact. She remains nonverbal today. OBJECTIVE: Vital Signs: Her most recent vital signs are temperature 98.6 degrees, blood pressure 99/89, heart rate is 84, respirations are 16. She is on room air. Last recorded saturation 100%. She has had 1325 in, she is 2.5 L positive with need for dialysis. LABS: Sodium 140, potassium 4.3, chloride 96, CO2 22, BUN 87, creatinine 7.3, glucose 195. Anion gap 22, calcium 9.2. White count 10.93, hemoglobin 10.6, hematocrit 33, platelet count 286,000. PHYSICAL EXAMINATION: General: This is a 57-year-old female. She is resting quietly in bed. She appears in no acute distress. Skin: Warm and dry. HEENT : Normocephalic, atraumatic. Conjunctivae pale. She has ERENDIRA. Mucous membranes are moist. Neck: Supple. Trachea midline. No jugular venous distention. Cardiovascular: Regular rate and rhythm. She does have a positive systolic murmur noted. Lungs: Clear to auscultation anteriorly. Equal excursion. She remains on room air. Abdomen: Round, soft, nontender. Positive bowel sounds. Extremities: She has bilateral below the knee amputation. No edema present. Neurological: Patient has random movement to her left arm. She is able to turn herself using her right arm and leg. She does not make eye contact this a.m. ASSESSMENT AND PLAN: 1. End-stage renal disease. Patient is due for her routine dialysis treatment today. She is on a 2K bath. We will dialyze her for 3.5 hours. We will attempt to pull her to her dry weight. We will not be using heparin today. 2. Electrolytes and acid-base balance. These remain stable. 3. Anemia. This remains low, but stable. No indications for intervention. 4. Seizure activity with dialysis. The patient has been followed by Dr. Constantino. Patient is on Vimpat 100 mg. this is dosed per Dr. Constantino for anticonvulsants. This appears to be ordered q.12 hours. Next dose is 2 p.m. This is immediately post dialysis treatment. I would like to thank you for allowing us to follow with this patient. Dictated by CORINA Castañeda for Reggie Perry MD Patient seen, data reviewed, discussed with Blake Wright on 06/08/17. I agree with the above assessment and plan of care. cc: CORINA Castañeda MD [facility]
--- NOTE | 2017-06-08 16:06 | PROGRESS NOTE ---
DATE: 06/08/2017 SUBJECTIVE: Patient is feeling fine. No more seizures reported. No fevers or chills reported too. The patient is awake. Speaks some words. No acute issues overnight as per nursing staff. OBJECTIVE: Vital Signs: Temperature 99.2 degrees, heart rate 100, respiratory rate 20, blood pressure 118/62, O2 saturation 100% on 2 L nasal cannula. General Examination: This is a chronically ill-appearing and frail, 57-year-old female lying in bed, in no acute distress. HEENT: Head is normocephalic, atraumatic. Anicteric sclerae and pale conjunctivae. Mucous membranes moist. Neck: Supple. No JVD noted. No carotid bruits. No lymphadenopathy. No thyromegaly. Cardiovascular: S1, S2 heard. No murmurs, gallops, or rubs. Regular rate and rhythm. Respiratory: Clear bilaterally to auscultation. No work of breathing or using accessory muscles. Abdomen: Soft. Nontender to palpation. Bowel sounds present. No organomegaly. Extremities: Bilateral kdjsg-fyh-jixb amputation. Neurological: Patient has expressive aphasia. She is able to tell her name slowly. Left hemiplegia noted. Able to follow very basic commands like squeeze my fingers. LABORATORY DATA: White cell count 10.93, hemoglobin 10.6, hematocrit 33.0, platelets 286,000. BMP remarkable for creatinine 7.3, BUN 87. ASSESSMENT: 1. 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 No more neurological symptoms since then happened 4 days ago. Neurology is following this patient. Initially we decided to allow permissive hypertension but, of course, 72 hours has passed already so we are going to restart blood pressure medications. Right now the blood pressure is most of the time between 117 and 120. 2. Seizure disorder. The patient had a seizure next day after she got this episode of acute stroke. Patient has been started on Keppra by neurology and since then she is doing fine. We will continue with the same management. 3. Right lower lobe pneumonia/aspiration pneumonia. Patient is currently on Zosyn. She is not spiking any fever. White cell count is back to normal. 4. Hlq-GJ-urdmqnt elevation myocardial infarction. That condition is stable. Cardiology was following on admission but they have signed off. No chest pain reported. 5. End-stage renal disease on dialysis. Dr. Perry is following this patient. 6. Diabetes mellitus type 2. Patient is on sliding scale insulin. We will continue with the same management. 7. Hypertension. We are going to resume home blood pressure medications. Currently blood pressure is under control. 8. Severe peripheral vascular disease. Patient has bilateral wzmbz-ivr-ajnx amputation. 9. Gastroesophageal reflux disease. We will continue with PPI. 10. Tobacco abuse. Patient is being advised to stop smoking. 11. Disposition. At this time, this patient is medically stable and can be discharged to a rehab facility versus jail. We will notify social media developer and will go from there. PLAN: Overall this patient is doing good. Patient was admitted to the hospital for pneumonia and difficulty in breathing. She was initially started on ceftriaxone and last Thursday she had an acute change in mental status, so a CT of the head and also MRI of the brain showed right hemispheric stroke. Neurology was consulted stat. They are following this patient. The next day she developed seizure, probably secondary to this stroke. The patient was started on Keppra and since then she is doing fine. Mental status is much better. Blood pressure is well controlled. Patient currently is on Zosyn because she had an episode of aspiration after seizures. So at this time, this patient is stable and she can be sent to a rehab facility to continue on medical management. cc: Ru Limon MD
[2017-06-08] MEDS: NEXIUM IV SCH (22:51)
[2017-06-08] MEDS: LEVEMIR SUBQ SCH (22:52)
[2017-06-09] MEDS: ZOSYN 2.25 GM in NS 50 ML IV SCH ×4 (00:58→17:21)
[2017-06-09] MEDS: NS IV SCH ×2 (02:37→15:19)
[2017-06-09] MEDS: VIMPAT IV SCH ×2 (02:37→15:19)
[2017-06-09 05:48] LABS: MANUAL DIFF NEEDED? NO
[2017-06-09 06:05] LABS: BASO% 0.4 % (0.0-0.8); EOS# 0.15 X1000 (0.0-0.7); EOS% 1.2 % (0.0-10.0); HEMATOCRIT 36.1 % (37.0-47.0); HEMOGLOBIN 11.4 g/dL (12.0-16.0); IMM GRAN# 0.12 X1000 (0.0-0.04); IMM GRAN% 0.9 % (0.0-0.5); LYMPH# 1.93 X1000 (1.2-3.4); LYMPH% 14.9 % (20.5-51.1); MCH 32.4 PG (27-31); MCHC 31.6 g/dL (33-37); MCV 102.6 FL (81-99); MONO# 1.09 X1000 (0.11-0.59); MONO% 8.4 % (1.7-9.3); MPV 11.3 FL (7.4-10.4); NEUT% 74.2 % (42.2-75.2); PLT 234 X1000 (130-400); RBC 3.52 XMIL (4.2-5.4)
[2017-06-09] MEDS: HUMALOG SUBQ SCH ×3 (06:30→17:14)
[2017-06-09 07:03] LABS: CALCIUM 9.7 mg/dL (8.8-10.2); POTASSIUM 3.9 mmol/L (3.5-5.1)
[2017-06-09] MEDS: ASPIRIN PR SCH (09:13)
[2017-06-09] MEDS: HEPARIN SUBQ SCH (09:13)
--- NOTE | 2017-06-09 11:18 | PROGRESS NOTE ---
DATE: 06/09/2017 SUBJECTIVE: Patient is feeling fine. No more seizures reported per nursing staff. No more neurological signs reported. Patient's mental status has been stable during the last few days. No acute issues overnight as per nursing staff. OBJECTIVE: Vital Signs: Temperature 97.5 degrees, heart rate 88, respiratory rate 20, blood pressure 144/67, O2 saturation 100% on 2 L nasal cannula. General Examination: This is a chronically ill appearing and frail, 57-year-old, female lying in bed, in no acute distress. HEENT: Head is normocephalic and atraumatic. Anicteric sclerae and pale conjunctivae. Mucous membranes moist. Neck: Supple. No JVD noted. No carotid bruits. No lymphadenopathy. No thyromegaly. Cardiovascular Examination: S1 and S2 heard. No murmurs, gallops, or rubs. Regular rate and rhythm. Respiratory Examination: Clear bilaterally to auscultation. No work of breathing or using accessory muscles. Abdomen: Soft, nontender to palpation. Bowel sounds present. No organomegaly. Extremities: Bilateral rzmip-gbe-qcvi amputation. Neurological Examination: Patient has expressive aphasia. Says sometimes her name is Lolly. Left hemiplegia noted. Able to very basic commands, like squeezing fingers. Laboratory Data: Reviewed. ASSESSMENT AND PLAN: 1. Acute right hemisphere infarction with residual left hemiplegia. There are no more new neurological symptoms since that happened 5 days ago. Neurology was following this patient and no new suggestions from their standpoint. We will continue with the same management. 2. Seizure disorder. That happened 1 day after this patient had this stroke. In any case, the patient has been placed on Keppra and since then, she is doing fine. 3. Right lower lobe pneumonia/aspiration pneumonia. Patient is on Zosyn. Not spiking fever. White cell count is back to normal. We are going to continue with the same management. 4. Non-ST segment elevation myocardial infarction. Condition is stable. Cardiology was following this patient at admission but they have signed off. We will continue with the same management. Patient is not complaining of chest pain anymore. 5. End-stage renal disease, on dialysis. Dr. Perry is following this patient. She is having her usual dialysis as scheduled. 6. Diabetes mellitus type 2. We will continue with the sliding scale insulin. 7. Hypertension. We are going to resume home blood pressure medications, although the blood pressure is under control without them. 8. Severe peripheral vascular disease. Patient has bilateral xwkqm-wns-pjun amputation. 9. Gastroesophageal reflux disease. We will continue with proton pump inhibitor. 10. Tobacco abuse. Patient is advised to stop smoking. 11. Disposition. At this point, patient is medically stable. She can go to a rehab facility versus [facility] when a bed is available. structural steel trades worker has been has been notified. cc: Ru Limon MD
--- NOTE | 2017-06-09 13:27 | PROGRESS NOTE ---
DATE: 06/09/2017 SUBJECTIVE: Ms. Martinez is resting quietly in bed. She does not make any eye contact. She does continue to pull herself over with her right arm; minimal movement to her left arm today. OBJECTIVE: Vital Signs: Her most recent vital signs: Temperature 97.5 degrees , blood pressure 144/67, heart rate 88, respirations are 20. She remains on 2 L nasal cannula. Last recorded saturation 100%. She has had 0 recorded in. She has had 2211 removed off of dialysis yesterday. LABS: Sodium 144, potassium 3.9, chloride 97, CO2 24, BUN 45, creatinine 5.7, glucose 137. Her anion gap is 23, calcium is 9.7. White count 12.96, hemoglobin 11.4, hematocrit 36.1, with a platelet count of 234,000. PHYSICAL EXAMINATION: General: This is a 57-year-old, female. She is currently resting in bed. She is in no acute distress. Skin: Warm and dry. HEENT: Normocephalic, atraumatic. Conjunctiva is pink. She has ERENDIRA. Mucous membranes are moist. Neck: Supple. Trachea midline. No JVD. Cardiovascular: Regular rate and rhythm. She has a soft systolic murmur. Lungs: Clear to auscultation anteriorly. Equal excursion on room air. Abdomen: Round, soft, nontender. Positive bowel sounds. Extremities: Bilateral BKA. No edema present. Neurological: Again patient is not making eye contact today. Minimal movement to the left arm. Able to turn self with right. ASSESSMENT AND PLAN: 1. End-stage renal disease. Patient had routine dialysis yesterday; no indications for intervention today. We will plan for dialysis in the morning. 2. Electrolytes and acid-base balance and anemia. These all remain at target range. 3. Seizure activity. Patient did not have any seizures during her dialysis treatment yesterday. She remains on Vimpat 100 mg twice daily with her dosing schedule immediately after dialysis. I would like to thank you for allowing us to follow with this patient. Dictated by CORINA Castañeda for Reggie Perry MD Patient seen, data reviewed, discussed with Blake Wright on 06/09/17. I agree with the above assessment and plan of care. cc: CORINA Castañeda MD [facility]
[2017-06-10] MEDS: HEPARIN SUBQ SCH ×2 (00:20→14:01)
[2017-06-10] MEDS: LEVEMIR SUBQ SCH (00:20)
[2017-06-10] MEDS: NEXIUM IV SCH (00:21)
[2017-06-10] MEDS: SODIUM CHLORIDE 0.9% INJ SCH (00:21)
[2017-06-10] MEDS: HUMALOG SUBQ SCH ×4 (00:24→16:38)
[2017-06-10] MEDS: ZOSYN 2.25 GM in NS 50 ML IV SCH ×3 (00:27→14:02)
[2017-06-10] MEDS: NS IV SCH ×2 (02:52→15:35)
[2017-06-10] MEDS: VIMPAT IV SCH ×2 (02:52→15:35)
[2017-06-10 07:03] LABS: POTASSIUM 4.2 mmol/L (3.5-5.1)
[2017-06-10] MEDS ORDERED: NS 2,000 ML MISC PRN (07:10)
[2017-06-10] MEDS ORDERED: TIGHT: 0.2 ML/HR MISC PRN (07:10)
[2017-06-10] MEDS ORDERED: HEPARIN IV PRN (07:10)
[2017-06-10] MEDS ORDERED: NS 2,000 ML ONE (07:15)
[2017-06-10] MEDS ORDERED: HEPARIN ONE (07:15)
--- NOTE | 2017-06-10 12:23 | DISCHARGE SUMMARY ---
ADMISSION DATE: 05/31/2017 DISCHARGE DATE: 06/10/2017 CONSULTATIONS: 1. Dr. Reggie Perry with Nephrology. 2. Dr. Henrry Chang with Cardiology. 3. Dr. Temi Constantino with Neurology. PERTINENT PROCEDURES: 1. Chest x-ray showed pulmonary edema plus or minus pneumonia particularly in the right lower and middle lobe. 2. Echocardiogram with limited views. Showed an EF of around 40%. 3. Head CT showed significant chronic ischemic changes. Subacute acute infarct in the right middle cerebral distribution affecting a fairly large portion of the right parietal lobe. 4. Carotid Doppler showed calcific atherosclerosis throughout both carotid systems but no ulcerative plaques or hemodynamic significant lesions present. 5. Brain MRA showed stenosis in both posterior cerebral arteries, the sylvian branches of the middle cerebral arteries and the right anterior cerebral arteries as described. 6. Brain MRI showed extensive chronic changes both in cerebral hemispheres in the right cerebellar hemisphere. Acute ischemia in the right parietal lobe and a small acute lacunar infarct in the right cerebellar hemisphere. 7. Head CT showed evolving right middle cerebral artery infarct. 8. Chest CT showed bilateral infiltrates most prominent in the upper lobe, severe atherosclerosis. No pericardial effusion or pleural effusion on current exam. 9. EEG showed generalized slowing slightly more prominent slowing over the right hemisphere and the right hemisphere epileptiform discharge. DISCHARGE DIAGNOSES: 1. End-stage renal disease on hemodialysis Thursday, Thursday, Thursday. Electrolytes and acid-base and anemia remained in target, stable. The patient will be discharged to [facility] after hemodialysis today. 2. Acute right hemisphere infarct with residual left hemiplegia followed by Neurology. Continue current management with aspirin. 3. Seizure disorder. This happened 1 day after the patient's stroke. She has been placed on Keppra. 4. Right lower lobe and aspiration pneumonia. The patient will continue on p.o. antibiotics. 5. Non STEMI. Followed by Cardiology. Unfortunately given the patient's severe diffuse nature of coronary atherosclerosis and lack of targets for coronary bypass. Just continue medical management as appropriate. Stable. 6. Diabetes mellitus type 2. Continue management. 7. Hypertension. Continue home medications. 8. Severe peripheral vascular disease. The patient has bilateral zijrt-lge-gpvt amputation. 9. GERD. Continue PPI. 10. Tobacco abuse. Patient has been advised and counseled daily on smoking cessation. 11. Physical deconditioning secondary to bilateral amputee as well as left-sided hemiplegia from the stroke. The patient has been working with physical therapy and will be discharged to rehab. HOSPITAL COURSE: Ms. Martinez is a 57-year-old, female, well known to our service with past medical history of congestive heart failure, systolic and diastolic, diabetes mellitus, end-stage renal disease on hemodialysis Thursday, Thursday, Thursday via her left AV fistula, severe coronary artery disease but is not a candidate for any coronary artery bypass given her severe PVD and lack of target vessels, hypertension, medical noncompliance, diabetic neuropathy, dyslipidemia, CVA x2, bilateral adaky-mwb-bphr amputations. She came to the ED with chief complaint of shortness of breath. This started 2 days prior. In the ED she was found to have low O2 even on 4 L nasal cannula around 82%. X-ray showed lower lobe pneumonia and pulmonary vascular congestion. The patient was started on antibiotic therapy and O2. Nephrology was consulted due to her end-stage renal disease, as well as medical management as well as medication management with dosing of medication. The patient was also noted to have elevated troponins however they were more elevated than they had been in the past. Cardiology was consulted. The redid an echo. She was found to have decreased EF down to 40%. They did determine that she did have a small non STEMI suspected precipitated by her CHF with increased wall strain in the setting of multi-vessel coronary atherosclerosis. She has been evaluated for CABG in the past. She is felt to not have any suitable targets for bypass and the diffuse nature of her coronary disease made it unlikely that percutaneous intervention would be any benefit to justify the risks so they will continue to treat her medically. Unfortunately while in the hospital she had an acute ischemic stroke with left hemiparesis. Neurology was on board. The day after her stroke was diagnosed she did have a seizure. She was started on Keppra. She has been seizure-free since. After her seizure she also had an episode of aspiration pneumonia for which she was started on another antibiotic and that she will continue p.o. upon discharge. She is stable for discharge after hemodialysis today. VITAL SIGNS: Temperature is 98.1 degrees, heart rate 89, respirations 16, blood pressure 155/62, O2 is 100% on 2 L nasal cannula. DISCHARGE DIET: Diabetic. DISCHARGE MEDICATIONS: As per Dr. Ramirez. FOLLOWUP: Ms. Martinez is being discharged to rehab where she will continue on her hemodialysis. She will follow up with Neuro as well as Cardiology as indicated. She will return to the ED for any worsening of symptoms. DISCHARGE TIME: Greater than 30 minutes. Dictated by CORINA Pastrana for Ru Limon MD cc: Ru Limon MD
--- NOTE | 2017-06-10 13:08 | PROGRESS NOTE ---
DATE: 06/10/2017 TIME SEEN: 0825 hours. SUBJECTIVE: Ms. Martinez is resting quietly in bed. She has no complaints. She remains nonverbal, although she does make eye contact and shook her head. OBJECTIVE/VITAL SIGNS: Her most recent vital signs: Temperature 97.7 degrees, blood pressure 176/56, heart rate 91, respirations 16. She is on 2 L nasal cannula. Last recorded saturation 100%. She has had 540 in. She has had zero recorded out. LABS: Sodium 141, potassium 4.2, chloride 96, CO2 26, BUN 67, creatinine 7.1, glucose 196. Anion gap 19, calcium 9. Previous hemoglobin 11.4 on the twenty-second. PHYSICAL EXAMINATION: General: This is a 57-year-old, female. She is resting quietly in bed. She is in no acute distress. Skin: Warm and dry. HEENT: Normocephalic, atraumatic. Conjunctiva is pink. She has ERENDIRA. Mucous membranes are moist. Neck: Supple. Trachea midline. No JVD evident. Cardiovascular: Regular rate and rhythm. She has a soft systolic murmur. No gallop. Lungs: Clear to auscultation anteriorly. Equal excursion on room air. Abdomen: Round, soft, nontender. Positive bowel sounds. Extremities: Continue with bilateral BKA. No edema present. Neurological: Patient does make eye contact and shook her head, although she remains nonverbal. ASSESSMENT AND PLAN: 1. End-stage renal disease. Patient is due for her routine dialysis treatment today. We will place her on a 2 potassium bath. She is to dialyze for 3-1/2 hours. We will attempt to pull her to a dry weight. 2. Electrolytes, acid-base balance and anemia: These remain stable. 3. Seizure activity. No seizures noted after dialysis. She remains on Vimpat as indicated with neurology following. more interactive today. Smiles, cooperates with right hand. rg I would like to thank you for allowing us to follow with this patient. Patient seen, data reviewed, discussed with Blake Wright on 06/10/17. I agree with the above assessment and plan of care. rg Dictated by CORINA Castañeda for Reggie Perry MD cc: CORINA Castañedah, MD [facility]
[2017-06-10] MEDS: ASPIRIN PR SCH (14:00)
[2017-06-10] MEDS: EPOGEN SUBQ SCH (14:01)
[2017-06-10 14:53] VITALS: BP 126/50
== END 2017-06-10 17:13 ==
LOC: ED 13:16 → 3N 17:07 → SUATTDRO 17:07 → 3N 18:22 → ICU 06-03 12:10 → 4N 06-06 18:02
PROVIDERS: ATTEND Internal Medicine